=== PATIENT | male | born 1955 | race Caucasian/White ===

== ENCOUNTER 2020-12-05 11:44 | Outpatient (NON) | payer BC, SELFPAY ==
[2020-12-05 22:42] LABS: SARS-CoV-2 RNA PCR Positive
== END 2020-12-05 11:45 ==
PROVIDERS: PCP Family Medicine; Visit Provider Family Medicine
DX: U07.1 COVID-19 (principal)
CPT/HCPCS: C9803; U0003; U0005

== ENCOUNTER 2021-01-13 10:31 | Inpatient (IN) | payer BC, SELFPAY ==
[2021-01-13] VITALS (30 sets, daily range): BP systolic 90–116; BP diastolic 50–86; PULSE 40–72; RESP 11–20; TEMP 36.5–36.7; O2SAT 95–99; BMI 26.5
--- NOTE | 2021-01-13 | ECHO_ITS ---
Patient Info Name: Torrey Castañeda Age: 65 years : 1955 Gender: Male Ht: 70 in Wt: 168 lbs BSA: 1.95 m2 HR: 45 bpm BP: 116 / 86 mmHg Heart Rhythm: Sinus Rhythm, Bradycardia Technical Quality: Good Exam Date: 01/13/2021 4:53 PM Exam Location: [facility] Pulmonary Patient Status: Inpatient Admit Date: 01/13/2021 Staff Ordering Physician: Miguelangel Moulton MD Respiratory Therapy Assistant: Jan Coronado RDCS Attending Provider: Theresa El MD Referring Physician: Kenney HERNADEZ; Exam Type: CA echo dop color flow w con Study Info Indications R07.9 - Chest pain, unspecified Complete two-dimensional, color flow and Doppler transthoracic echocardiogram is performed with contrast to opacify the left ventricle and to improve the deliniation of the left ventricle endocardial borders. Contrast/Agitated Saline Contrast/Ag. Saline: Definity Amount: 3.00 ml Administered By: Galina Katz RN Existing IV Access: Yes History/Risk Factors Chest pain and bradycardia. Summary 1. Left ventricular systolic function is normal, estimated at 55%. 2. Moderate hypokinesis of the mid inferolateral and mid inferior delgado. 3. There is no aortic valve stenosis. 4. There is trace mitral valve regurgitation. 5. There is trace tricuspid valve regurgitation. 6. No pulmonary hypertension, estimated pulmonary arterial systolic pressure is 23 mmHg. Left Ventricle Left ventricular chamber dimension is normal. Left ventricular systolic function is normal, estimated at 55%. There is upper limits normal left ventricular wall thickness. The left ventricular diastolic function is grade II diastolic dysfunction. Moderate hypokinesis of the mid inferolateral and mid inferior delgado. Right Ventricle Right ventricular chamber dimension is normal. Right ventricular systolic function is normal. Left Atria Left atrial chamber dimension is mildly enlarged. Right Atria Right atrial chamber dimension is mildly enlarged. Aortic Valve The aortic valve is trileaflet. There is mild aortic valve sclerosis. There is no aortic valve stenosis. There is no aortic valve regurgitation. Pulmonic Valve The pulmonic valve is not well visualized. Mitral Valve The mitral valve has normal leaflets. There is trace mitral valve regurgitation. The mitral valve annulus is moderately calcified. Tricuspid Valve The tricuspid valve leaflets are normal. There is trace tricuspid valve regurgitation. No pulmonary hypertension, estimated pulmonary arterial systolic pressure is 23 mmHg. Pericardium/Pleural The pericardium appears normal. There is no pericardial effusion. Aorta The aortic root size at the sinus of Valsalva is normal. Left Ventricular Outflow Tract Name Value Normal LVOT 2D LVOT Diameter 2.07 cm LVOT Doppler LVOT Peak Gradient 7 mmHg LVOT Mean Gradient 3 mmHg LVOT VTI 29.04 cm LVOT VTI/AV VTI Ratio 0.89 LVOT Stroke Volume
--- NOTE | ~2021-01-13 | XR_ITS ---
EXAMINATION: XR chest 2V EXAM DATE: 01/13/2021 11:06 INDICATION: Right-sided generalized chest pain. TECHNIQUE: Frontal and lateral projections of the chest obtained and reviewed. Comparison is made to prior examination from 02/16/2013. FINDINGS: The lungs are clear. Azygos fissure. There are no pleural effusions. The cardiomediastinal silhouette is within normal limits. There is no pneumothorax suspected. The bones and soft tissues are unremarkable. IMPRESSION: No acute cardiopulmonary findings. Reviewed, dictated and finalized at location B. E BENDER
--- NOTE | 2021-01-13 10:39 | ECG_ITS ---
Measurements Intervals [place] Rate: 54 P: 47 [place]: 175 QRS: -43 QRSD: 106 T: 29 QT: 429 QTc: 410 Interpretive Statements SINUS BRADYCARDIA LEFT AXIS DEVIATION POOR R WAVE PROGRESSION, ANTERIOR LEADS BASELINE WANDER- V2-V5 BORDERLINE ECG Electronically Signed On 01-13-2021 10:56:56 FISH HATCHERY MANAGER by Manjeet Tracey D.O.
[2021-01-13 10:56] LABS: Basophils Percent Auto 0.5 % (0.2-1.2); Eosinophils Absolute Auto 0.1 K/mm3 (0-0.3); Eosinophils Percent Auto 1.6 % (0-4.4); Hematocrit 42.8 % (42.0-52.0); Hemoglobin 13.9 g/dL (14.0-18.0); Immature Granulocyte Absolute 0.04 K/mm3 (0.00-0.031); Immature Granulocyte Percent A 0.5 % (0-0.5); Lymphocytes Absolute Auto 1.75 K/mm3 (0.9-3.2); Lymphocytes Percent Auto 21.7 % (18.3-44.2); Mean Corpuscular HGB Conc 32.5 g/dl (32-36); Mean Corpuscular Hemoglobin 30.3 pg (26-34); Mean Corpuscular Volume 93.4 fl (80-100); Mean Platelet Volume 9.8 fl (7.4-10.4); Monocytes Absolute Auto 0.6 K/mm3 (0.1-0.6); Monocytes Percent Auto 7.3 % (2.6-8.5); Neutrophils Absolute Auto 5.5 K/mm3 (1.3-6.7); Neutrophils Percent Auto 68.4 % (45.5-73.1); Platelet Count Result 192 k/mm3 (150-375); Red Blood Count 4.58 M/mm3 (4.6-6.20); Red Cell Distribution Width 13.4 % (11.5-14.5); White Blood Count 8.1 K/mm3 (4.5-10.0)
[2021-01-13 11:11] LABS: Anion Gap 5 mmol/L (8-16); Blood Urea Nitrogen 21 mg/dL (9-20); Calcium 8.7 mg/dL (8.4-10.2); Carbon Dioxide 30 mmol/L (22-30); Chloride 106 mmol/L (98-107); Estimated Glomerular Filt Rate > 60; Glucose 131 mg/dL (75-110); Potassium 4.1 mmol/L (3.4-5.0); Sodium 141 mmol/L (137-145)
[2021-01-13 11:15] LABS: INR 0.9; Partial Thromboplastin Time 24.1 SECONDS (22.3-36.8)
[2021-01-13] MEDS: ONDANSETRON INJ 4 MG/2 ML VIAL IV PUSH (11:20)
[2021-01-13] MEDS: SODIUM CHLORIDE 0.9% IV 1,000 ML 999 ML IV CONT (11:20)
[2021-01-13 11:22] LABS: Troponin I 0.022 ng/mL (0.000-0.034)
[2021-01-13 11:36] LABS: Alanine Aminotransferase 58 U/L (4-50); Albumin Level 3.9 g/dL (3.5-5.1); Alkaline Phosphatase 80 U/L (38-126); Aspartate Amino Transferase 69 U/L (17-59); Bilirubin,Total 0.8 mg/dL (0.2-1.3); Lipase 78 U/L (23-300)
[2021-01-13] MEDS: SODIUM CHLORIDE 0.9% IV 500 ML 1000 ML (12:03)
--- NOTE | 2021-01-13 12:07 | ED.CHESTPAIN ---
HPI - Chest Pain General Chief Complaint: Chest Pain Stated Complaint: Right arm, CP Time Seen by Provider: 01/13/21 10:53 History of Present Illness HPI narrative: Patient is a 65-year-old male who presents ER with chest pain. Occurred about 9 AM. Reports it was a intense ache right-sided going to the shoulder and back that then moved across the center of his chest. Lasted for about an hour. Patient then started having vomiting and nausea. Had brief confusion at home prior to coming to the ER after having emesis. No lateralizing weakness or facial droop according to . Patient reports chest pain is now resolved. He does have some continued lightheadedness and nausea. No previous history of heart disease. Has not had similar symptoms. When he was dizzy had no rotational dizziness. No epigastric pain or lower abdominal pain. No association with eating or drinking. Related Data Home Medications Medication Instructions Recorded Confirmed levothyroxine 50 mcg PO DAILY 01/13/21 01/13/21 lisinopril 10 mg PO DAILY 01/13/21 01/13/21 simvastatin 5 mg PO DAILY 01/13/21 01/13/21 Allergies Allergy/AdvReac Type Severity Reaction Status Date / Time No Known Allergies Allergy Verified 09/18/20 11:47 Review of Systems Review of Systems: All systems reviewed & are unremarkable except as noted in HPI and below Constitutional: Constitutional: Denies chills and Denies fever(s) ENT: Denies nasal congestion and Denies sore throat Cardiovascular: Cardiovascular: Reports chest pain, Denies rapid heart rate and Reports radiating jaw, neck or arm pain Respiratory: Respiratory: Denies cough, Denies dyspnea and Denies wheezing Gastrointestinal: Gastrointestinal: Denies abdominal pain, Denies heartburn, Denies diarrhea, Reports nausea and Reports vomiting Musculoskeletal: Musculoskeletal: Denies back pain and Denies muscle cramps Neurologic: Reports dizziness, Reports syncope, Denies focal weakness and Denies numbness PMFSH Past Medical History Medical History Essential (primary) hypertension Hypothyroidism Pure hypercholesterolemia, unspecified Rotator cuff tear (~04/05/12) Ruptured patellar tendon (~2004) Surgical History Surgical History H/O hemorrhoidectomy (~04/27/13) H/O hernia repair (~1994) Family History Family History Mother Diabetes mellitus Sibling Diabetes mellitus Hypertension Family history of elevated blood lipids Family history of kidney disease Family history of malignant neoplasm of breast in first degree relative Family history of malignant neoplasm of kidney Father Hypertension Family history of throat cancer Social History Social History Smoking status: Never smoker Alcohol intake: never Substance use: never Gender identity (if verbalized by the patient): Male Spiritual care concerns: No Exam Narrative: Exam Narrative: GENERAL: Well-appearing, well-nourished, and in no acute distress. HEAD: Normocephalic, atraumatic. EYES: PERRL and EOMI. CHEST: Clear to auscultation. No respiratory distress. HEART: Bradycardic and regular. Normal peripheral pulses. ABDOMEN: Soft, nontender, nondistended. EXTREMITIES: Normal range of motion. No edema. SKIN: Warm, dry, no rash. NEURO: Alert and oriented x3. PSYCH: Normal mood and affect. Course Course Emergency Course: Consulted with cardiology. Dr. Mccarty requests medical admission and he will consult. Echocardiogram will be ordered. We will continue to trend troponins. No anticoagulation recommended at this time as patient is pain-free. Patient's blood pressures improving with IV fluid but not as much as only think after 2 L IV fluid. Patient's bradycardia seems to improve upon waking up as he is very comfor
--- NOTE | 2021-01-13 12:31 | PC.NURSE ---
ERP aware of Pt. blood pressure continuing to be in the upper 90s. ERP ordered additional 500ml bolus via verbal order readback. Blood pressures remained in the upper 90s after 1st initial 500ml bolus. ERP notified and ordered another 500ml bolus of NS via verbal order readback.
[2021-01-13] MEDS: SODIUM CHLORIDE 0.9% IV 500 ML 999 ML (12:32)
[2021-01-13 14:18] LABS: Troponin I 0.992 ng/mL (0.000-0.034)
--- NOTE | 2021-01-13 14:32 | ADMGEN ---
This patient, Torrey Castañeda, was admitted to IMU Room 203-01 @1432. Patient/family oriented to hospital policies and general routines including ID bracelet, bed and alarms, visiting hours, pain management, procedures, bathroom and other care routines, personal items, smoking policy, room service/diet, and visiting hours. Information on how to activate the Rapid Response Team has been discussed. Patient/Family are encouraged to report perceived risks to care and to ask questions if they do not understand what they are told or what they should do.
--- NOTE | 2021-01-13 14:55 | PM.CNCAR ---
Assessment and Plan Assessment and plan (1) NSTEMI (non-ST elevated myocardial infarction): Code(s): I21.4 - Non-ST elevation (NSTEMI) myocardial infarction Status: Acute Assessment and Plan: Although somewhat atypical right-sided chest pain given associated nausea, vomiting, near-syncope, bradycardia hypotension along with elevated troponin suggestive of acute coronary syndrome. No shortness of breath or hypoxia to support pulmonary embolism or recent inactivity. Patient is currently pain-free. NPO after midnight for coronary angiography to delineate coronary anatomy. Systemic anticoagulation, aspirin. Avoid beta-erik, nitrates given bradycardia and hypotension. Concern for possible RCA involvement given vagal response of bradycardia. Patient remains relatively hypotensive despite 2 L IV fluid in the emergency department. Patient feels well at this time has no complaints. If patient has refractory anginal symptoms and/or hemodynamic instability coronary angiography should be pursued on an urgent basis. discussed at length with the patient and his at bedside. All questions answered to their satisfaction. Risks including bleeding, stroke, , myocardial infarction with coronary angiography. Concern given bradycardia and hypotension which may post particular concerns with this case. Check lipid profile. Add statin, aspirin. Repeat 12 lead EKG, trend troponin. 2D echocardiogram. Will review when available with recommendations to follow. Discussed with patient and family my primary concern for underlying CAD and NSTEMI. We discussed medical therapy as well as invasive angiography as above. They agree to proceed with invasive workup in a.m. provided patient remains asymptomatic and hemodynamically stable. (2) Essential (primary) hypertension: Code(s): I10 - Essential (primary) hypertension Status: Acute Assessment and Plan: Hold lisinopril, patient now relatively hypotensive although otherwise stable. (3) Bradycardia: Code(s): R00.1 - Bradycardia, unspecified Status: Acute Assessment and Plan: Reviewed prior EKGs consistent with current study also documenting bradycardia. Avoid AV isabel blocking agents loss of R-waves throughout precordial leads otherwise no significant change. (4) Hypotension: Code(s): I95.9 - Hypotension, unspecified Status: Acute Assessment and Plan: As above. Exercise caution, monitor closely continue telemetry. 2D echocardiogram to assess LV function, wall motion abnormalities. check TSH. History of Present Illness History of Present Illness Consult date/time: Date of service: 01/13/21 14:55 Cardiology consultation at the request of Dr. El of the [facility] hospitalist service for my opinion regarding chest pain and elevated troponin. Requesting physician: Theresa El MD Consult reason: chest pain Reason For Visit: Chest pain/near syncope Narrative: patient is a pleasant 65-year-old male with a past medical history significant for hypertension, hypothyroidism, dyslipidemia who states he was in his usual state of health when approximately 830 this morning he was on a roof pulling nails when he rather suddenly began to experience right-sided heaviness /achiness which radiated to his right shoulder and upper back. He denies shortness of breath, diaphoresis or dizziness at that time. He states he got down off the roof notified his and states he was coming home. She told him she would come pick him up but he wished to drive himself home. is at bedside providing additional history in this regard. His states she gave him 4 baby aspirin and then he began to feel nauseous and vomited and was confused. She states he with started to slump over and while she was speaking with him he was not conversant. He did not completely lose consciousness yet the patient does not recall some of those events
--- NOTE | 2021-01-13 15:57 | PM.IMHP ---
H&P: HPI History of Present Illness Date/Time: 01/13/21 15:57 Chief Complaint: Chest pain Narrative: Torrey Castañeda is a 65 year old male felt R sided chest pain radiating to his shoulder and back was helping his son in law on a roof at that time. Pt went home and went to sleep he woke up and started throwing up. Presently pts Bp and heart rate are low in the hospital. Pt denies blacking out or any seizure activity. Pt had covid one month a ago otherwise is relatively well. Pt stated he had some left sided chest pain, and had a stress test then, in May which was negative. Pt has history of HTN, hypercholesterolemia and hypothyroidism. Review of Systems Review of Systems: All systems reviewed & are unremarkable except as noted in HPI and below PMFSH Past Medical History Medical History Essential (primary) hypertension Hypothyroidism Pure hypercholesterolemia, unspecified Rotator cuff tear (~04/05/12) Ruptured patellar tendon (~2004) Surgical History Surgical History H/O hemorrhoidectomy (~04/27/13) H/O hernia repair (~1994) Family History Family History Mother Diabetes mellitus Sibling Diabetes mellitus Hypertension Family history of elevated blood lipids Family history of kidney disease Family history of malignant neoplasm of breast in first degree relative Family history of malignant neoplasm of kidney Father Hypertension Family history of throat cancer Social History Social History Smoking status: Never smoker Alcohol intake: never Substance use: never Gender identity (if verbalized by the patient): Male Spiritual care concerns: No Meds Home Medications and Allergies Home Medications Medication Instructions Recorded Confirmed Type cyclobenzaprine 10 mg tablet 10 mg PO TID PRN #30 tablet 05/19/20 01/13/21 Rx levothyroxine 50 mcg PO DAILY 01/13/21 01/13/21 History lisinopril 10 mg PO DAILY 01/13/21 01/13/21 History simvastatin 5 mg PO DAILY 01/13/21 01/13/21 History Allergies Allergy/AdvReac Type Severity Reaction Status Date / Time No Known Allergies Allergy Verified 09/18/20 11:47 Vital Signs Vital Signs - 24 hr 01/13/21 10:53 01/13/21 10:54 01/13/21 11:06 Temperature 36.7 C Pulse Rate 55 L 57 L 57 L Respiratory Rate 19 14 11 L Blood Pressure 108/73 Pulse Oximetry 99 01/13/21 11:07 01/13/21 11:09 01/13/21 11:38 Temperature Pulse Rate 55 L 56 L 49 L Respiratory Rate 18 20 Blood Pressure 90/62 L Pulse Oximetry 98 01/13/21 11:46 01/13/21 12:01 01/13/21 12:02 Temperature Pulse Rate 46 L 44 L 43 L Respiratory Rate 16 11 L 15 Blood Pressure 93/61 L 90/64 L Pulse Oximetry 98 01/13/21 12:15 01/13/21 12:16 01/13/21 12:17 Temperature Pulse Rate 42 L 48 L 46 L Respiratory Rate 15 14 13 Blood Pressure 94/62 L Pulse Oximetry 98 98 01/13/21 12:26 01/13/21 12:30 01/13/21 12:32 Temperature Pulse Rate 49 L 49 L 47 L Respiratory Rate 12 20 15 Blood Pressure 98/61 L 90/60 L Pulse Oximetry 98 98 01/13/21 12:54 01/13/21 13:00 01/13/21 13:01 Temperature Pulse Rate 41 L 40 L 43 L Respiratory Rate 14 12 13 Blood Pressure 93/62 L Pulse Oximetry 99 99 99 01/13/21 13:14 01/13/21 13:15 01/13/21 13:16 Temperature Pulse Rate 49 L 42 L 45 L Respiratory Rate 17 16 15 Blood Pressure 95/67 L 99/61 L Pulse Oximetry 96 95 96 01/13/21 13:36 01/13/21 14:00 01/13/21 14:41 Temperature 36.5 C Pulse Rate 46 L 48 L 55 L Respiratory Rate 12 12 16 Blood Pressure 96/70 L 116/86 Pulse Oximetry 99 99 99 Exam Const: General: well developed Nutritional Appearance: well nourished HENMT: Head: normocephalic Eyes: General: appearance normal, both eyes and all related structures Pup
[2021-01-13 18:13] LABS: Cholesterol 121 mg/dL (0-200); HDL Direct 42 mg/dL; Triglycerides 32 mg/dL (<150)
[2021-01-13 18:24] LABS: LDL Cholesterol Direct 66 mg/dL
[2021-01-13] MEDS: ENOXAPARIN 100 MG/ML SYRINGE 84 MG SUB-Q (20:27)
--- NOTE | 2021-01-13 22:33 | PC.NURSE ---
Pt had a 5 beat run of vtach. Notified Dr. Varghese ordered mag level on him.
[2021-01-13 23:36] LABS: Magnesium 2.1 mg/dL (1.6-2.3)
--- NOTE | 2021-01-13 23:52 | ECG_ITS ---
Measurements Intervals [place] Rate: 55 P: 31 DE: 158 QRS: -44 QRSD: 105 T: 46 QT: 438 QTc: 421 Interpretive Statements SINUS BRADYCARDIA LEFT AXIS DEVIATION LOW QRS VOLTAGE IN PRECORDIAL LEADS INCOMPLETE RIGHT BUNDLE BRANCH BLOCK BORDERLINE ECG Electronically Signed On 01-14-2021 6:53:05 CLINICAL SAFETY SPECIALIST by Manjeet Tracey D.O.
[2021-01-14] VITALS (20 sets, daily range): BP systolic 88–116; BP diastolic 51–63; PULSE 43–67; RESP 15–18; TEMP 35.7–36.6; O2SAT 95–100
--- NOTE | 2021-01-14 05:18 | ECG_ITS ---
Measurements Intervals [place] Rate: 50 P: 60 [place]: 161 QRS: -39 QRSD: 104 T: 69 QT: 435 QTc: 398 Interpretive Statements SINUS BRADYCARDIA LEFT AXIS DEVIATION LOW QRS VOLTAGE IN PRECORDIAL LEADS INCOMPLETE RIGHT BUNDLE BRANCH BLOCK POOR R WAVE PROGRESSION, ANTERIOR LEADS BORDERLINE ECG Electronically Signed On 01-15-2021 7:06:08 CATHODE WASHER by Manjeet Tracey D.O.
[2021-01-14] MEDS: LEVOTHYROXINE SODIUM 50 MCG TABLET PO (05:29)
--- NOTE | 2021-01-14 05:43 | PC.NURSE ---
Pt started having cp of 3 it isn't radiating or having nausea. Called Dr. Varghese to notify. EKG done
--- NOTE | 2021-01-14 06:43 | ECG_ITS ---
Measurements Intervals [place] Rate: 65 P: 47 LA: 159 QRS: -39 QRSD: 109 T: 70 QT: 443 QTc: 462 Interpretive Statements SINUS RHYTHM VENTRICULAR COUPLET LEFT AXIS DEVIATION LOW QRS VOLTAGE IN PRECORDIAL LEADS INCOMPLETE RIGHT BUNDLE BRANCH BLOCK POOR R WAVE PROGRESSION, ANTERIOR LEADS BORDERLINE ECG Electronically Signed On 01-15-2021 7:06:56 DRAWING TENDER by Manjeet Tracey D.O.
[2021-01-14] MEDS: PROMETHAZINE HCL 25 MG/ML AMPUL 12.5 MG IV PUSH (07:06)
[2021-01-14] MEDS: MORPHINE SULFATE (*CRX) 4 MG/ML INJ IV PUSH (07:06)
[2021-01-14] MEDS: NITROGLYCERIN SL 0.4 MG TABLET SUBLINGUAL (07:30)
--- NOTE | 2021-01-14 08:05 | PC.NURSE ---
Pt called out that CP was worsening. He visibly looked uncomfortable stated pain was now a 5 and radiating down both arms to wrist, was sob, and feeling nauseous. Did vitals and repeat ekg. Call was placed to Dr. Varghese before he called back I gave morphine and phenergan. When he called back he ordered a repeat trop and a sublingual nitro to be given.
--- NOTE | 2021-01-14 08:24 | WPDMODSED ---
Moderate Sedation Note-Pt Data Patient Data Diagnosis: Acute coronary syndrome/ non ST elevation PA Present Complaint: intermittent chest pain Procedure to be performed/Plan: left heart catheterization Allergies Allergy/AdvReac Type Severity Reaction Status Date / Time No Known Allergies Allergy Verified 09/18/20 11:47 Home Medications Medication Instructions Recorded Confirmed Type cyclobenzaprine 10 mg tablet 10 mg PO TID PRN #30 tablet 05/19/20 01/13/21 Rx levothyroxine 50 mcg PO DAILY 01/13/21 01/13/21 History lisinopril 10 mg PO DAILY 01/13/21 01/13/21 History simvastatin 5 mg PO DAILY 01/13/21 01/13/21 History Current Medications: Active Medications Acetaminophen (Acetaminophen 325 Mg Tablet) 650 mg PO Q4H PRN PRN Reason: Mild Pain (1-3) or Fever Hydrocodone Bitart/Acetaminophen (Hydrocodone/Acetaminophen (*Crx) 5-325 Mg Tablet) 1 tab PO Q4H PRN PRN Reason: Pain Rated 4-6 Enoxaparin Sodium (Enoxaparin 100 Mg/Ml Syringe) 84 mg SUB-Q Q12HR [facility] Last Admin: 01/13/21 20:27 Dose: 84 mg Documented by: Levothyroxine Sodium (Levothyroxine Sodium 50 Mcg Tablet) 50 mcg PO DAILY@0630 [facility] Last Admin: 01/14/21 05:29 Dose: 50 mcg Documented by: Morphine Sulfate (Morphine Sulfate (*Crx) 4 Mg/Ml Inj) 4 mg IV PUSH Q2H PRN PRN Reason: Pain Rated 7-10 Last Admin: 01/14/21 07:06 Dose: 4 mg Documented by: Promethazine HCl (Promethazine Hcl 25 Mg/Ml Ampul) 12.5 mg IV PUSH Q6H PRN PRN Reason: Nausea Last Admin: 01/14/21 07:06 Dose: 12.5 mg Documented by: Simvastatin (Simvastatin 5 Mg Tablet) 5 mg PO DAILY [facility] Sedation/Anesthesia: No previous sedation/anesthesia problems (including family history). [facility] Past Medical History Medical History Essential (primary) hypertension Hypothyroidism Pure hypercholesterolemia, unspecified Rotator cuff tear (~04/05/12) Ruptured patellar tendon (~2004) Surgical History Surgical History H/O hemorrhoidectomy (~04/27/13) H/O hernia repair (~1994) Family History Family History Mother Diabetes mellitus Sibling Diabetes mellitus Hypertension Family history of elevated blood lipids Family history of kidney disease Family history of malignant neoplasm of breast in first degree relative Family history of malignant neoplasm of kidney Father Hypertension Family history of throat cancer Social History Social History Smoking status: Never smoker Alcohol intake: never Substance use: never Gender identity (if verbalized by the patient): Male Spiritual care concerns: No Mod Sed Physical Exam Physical Exam Pre Procedural Exam: Normal: Appearance ( well-developed well-nourished gentleman with intermittent chest pain), Neck, Throat, Airway, Lungs, Heart Size, Heart Rate, Heart Rhythm, Neuro Exam and Extremities Hours since solid foods: 12 Hours since liquid intake: 12 Internal Medicine - PN: Obj Da Vital Signs Vital Signs: Vital Signs - 24 hr 01/13/21 10:53 01/13/21 10:54 01/13/21 11:06 Temperature 36.7 C Pulse Rate 55 L 57 L 57 L Respiratory Rate 19 14 11 L Blood Pressure 108/73 Pulse Oximetry 99 01/13/21 11:07 01/13/21 11:09 01/13/21 11:38 Temperature Pulse Rate 55 L 56 L 49 L Respiratory Rate 18 20 Blood Pressure 90/62 L Pulse Oximetry 98 01/13/21 11:46 01/13/21 12:01 01/13/21 12:02 Temperature Pulse Rate 46 L 44 L 43 L Respiratory Rate 16 11 L 15 Blood Pressure 93/61 L 90/64 L Pulse Oximetry 98 01/13/21 12:15 01/13/21 12:16 01/13/21 12:17 Temperature Pulse Rate 42 L 48 L 46 L Respiratory Rate 15 14 13 Blood Pressure 94/62 L Pulse Oximetry 98 98 01/13/21 12:26 01/13/21 12:30 01/13/21 12:32 Temperature Pulse Rate 49 L 49 L 47 L Respiratory Rate 12 20 15 Bloo
--- NOTE | 2021-01-14 08:32 | PC.NURSE ---
Patient to cardiac ship laborer via stretcher. Report given to DEBRA Figueroa.
--- NOTE | 2021-01-14 09:15 | P.PCNCC_ITS ---
Cardiac Cath Procedure Note Date of procedure:: 01/14/21 Performing physician:: Darin Gomez MD Indication:: chest pain/ elevated troponin, diagnosis of acute coronary syndrome Brief clinical history:: 65-year-old patient without previous history of cardiac problems has hypertension and dyslipidemia being treated medically. Had an episode of chest pain yesterday while working on his roof. Following adm ission there was a moderate troponin rise prompting recommendation for angiography. Procedure Procedure performed:: Coronary angiography biplane left ventriculography Angio-Seal to right femoral artery Sedation/Medication given:: no sedation administered case start time 8:46 a.m. case end time 9:10 a.m. case monitored by Griselda Gordillo RN, trained observer Access site:: right femoral artery Estimated blood loss:: 10-15 cc Procedure note:: patient was brought to the cardiac catheterization lab in the postabsorptive state the right femoral triangle was prepared and draped in the usual fashion. Anesthesia was provided lidocaine infiltrated locally. Using modified Seldinger technique a 6 Kenyan sheath was placed into the femoral artery after this left heart catheterization was carried out. I used a 5 Kenyan FL4 catheter to engage inject the left coronary artery in multiple projections. I then used a 5 Ken[place] JR4 catheter to engage inject the right coronary artery. Following this the cineangiograms were reviewed. I used a 5 Kenyan angled pigtail catheter then to measure left-sided hemodynamics and to injected biplane left ventriculography. The case was then terminated in angiogram was done of the femoral artery through the sheath after which a Angio-Seal device was deployed with good anatomical and hemostatic result. Findings:: Hemodynamics: Central aortic pressure is 0 8/60 left ventricle 108/3 end-diastolic pressure is 18. There is no systolic gradient on pullback across the aortic valve. Left ventricle: The LV is normal in size all segments contract properly the global ejection fraction is 55-60% by visual estimation the left main coronary artery is widely patent the left anterior descending is a large caliber artery extending down to around the apex. on the 2nd angiogram which was the AP cranial injection there was a region of interesting contrast which was persisting in the vessel immediately after the major diagonal from the previous injection. On subsequent angiograms this had resolved and the vessel was otherwise angiographically normal. Circumflex is a large caliber vessel giving rise to the marginal branches and is angiographically not disease. Right coronary artery is a very large caliber vessel is dominant to the posterior circulation and angiographically is unremarkable. Conclusion:: 1. Right coronary dominant circulation with no angiographic evidence of coronary disease 2. interesting region of linear contrast persisting in the LAD on the 3rd angiogram as described above prior to the injection. This does raise some concern about the possibility of spontaneous coronary artery dissection. There was no visible dissection flap however in any of the angiograms. 3. Biplane left ventriculography demonstrating no regional wall motion abnormalities and normal left ventricular ejection fraction 4. Angio-Seal to right femoral artery Darin Gomez MD [facility]
[2021-01-14] MEDS: SODIUM CHLORIDE 0.9% IV 1,000 ML 125 ML IV CONT (09:30)
--- NOTE | 2021-01-14 10:45 | PC.NURSE ---
Patient returned to room following cardiac cath. Report received from DEBRA Elmore.
[2021-01-14] MEDS: SIMVASTATIN 5 MG TABLET PO (11:30)
[2021-01-14] MEDS: ASPIRIN 81 MG ENTERIC TABLET PO (11:30)
--- NOTE | 2021-01-14 15:46 | PM.IMPN ---
Progress Note: A&P Assessment and Plan (1) Chest pain: Code(s): R07.9 - Chest pain, unspecified Status: Resolved Assessment and Plan: Sp heart cath coronaries are clear, possible dissection (2) Syncope: Code(s): R55 - Syncope and collapse Status: Resolved (3) Pure hypercholesterolemia, unspecified: Code(s): E78.00 - Pure hypercholesterolemia, unspecified Status: Acute Assessment and Plan: Pt is on a statin ok to continue (4) Essential (primary) hypertension: Code(s): I10 - Essential (primary) hypertension Status: Acute Assessment and Plan: Hold BP medications - low Bp after NSTEMI Started on fluids for hypotension (5) NSTEMI (non-ST elevated myocardial infarction): Code(s): I21.4 - Non-ST elevation (NSTEMI) myocardial infarction Status: Acute Assessment and Plan: Pt having right sided chest pain with elevated troponin Aspirin, morphine. Continue statin add full dose lovenox. Sp heart catheterization today (6) Hypothyroidism: Code(s): E03.9 - Hypothyroidism, unspecified Status: Acute Assessment and Plan: Continue patients levothyroxine Subjective Date/time seen: 01/14/21 15:46 Review of Systems Review of Systems: All systems reviewed & are unremarkable except as noted in HPI and below Exam Const: General: well developed Nutritional Appearance: well nourished HENMT: Head: normocephalic Eyes: General: appearance normal, both eyes and all related structures Pupils: Equal, round and reactive pupils present Neck: Neck: supple Chest: Chest palpation & inspection: normal inspection of the chest Resp: Effort & Inspection: normal respiratory effort Auscultation: clear to auscultation bilaterally Cardio: Jugular venous distension: no JVD Rhythm: regular rhythm Heart sounds: S1 normal heart sound present and S2 normal heart sound present GI: Inspection: normal to inspection Skin: General skin exam: normal color and dry skin Neuro: Cranial nerves: Yes CN's II-XII intact bilaterally and Yes Equal, round and reactive pupils present Cognition (Neuro): normal cognition Speech: normal speech Motor exam (neuro): 5/5 motor strength present throughout Extrem: General: normal to inspection Psych: Mental Status: mental status grossly normal Objective Data Vital Signs Vital Signs: Vital Signs - 24 hr 01/13/21 16:00 01/13/21 18:00 01/13/21 20:00 Temperature 36.7 C Pulse Rate 51 L 72 67 Pulse Rate [Bilateral Radial Palpation] Respiratory Rate 20 Blood Pressure 98/53 L Pulse Oximetry 98 01/13/21 22:00 01/13/21 22:20 01/13/21 23:48 Temperature 36.7 C Pulse Rate 54 L 47 L Pulse Rate [Bilateral Radial Palpation] Respiratory Rate 16 Blood Pressure 93/50 L Pulse Oximetry 99 99 01/14/21 02:00 01/14/21 04:00 01/14/21 06:00 Temperature 36.6 C Pulse Rate 47 L 50 L 46 L Pulse Rate [Bilateral Radial Palpation] Respiratory Rate 18 Blood Pressure 97/52 L Pulse Oximetry 97 01/14/21 08:00 01/14/21 09:30 01/14/21 09:45 Temperature Pulse Rate 45 L 44 L 44 L Pulse Rate [Bilateral Radial Palpation] 44 L 44 L Respiratory Rate 15 15 Blood Pressure 95/61 L 88/63 L Pulse Oximetry 97 98 01/14/21 10:00 01/14/21 10:15 01/14/21 10:31 Temperature Pulse Rate 44 L 44 L 44 L Pulse Rate [Bilateral Radial Palpation] 44 L 45 L 46 L Respiratory Rate 15 16 15 Blood Pressure 88/62 L 90/62 L 95/61 L Pulse Oximetry 95 96 97 01/14/21 11:26 01/14/21 12:00 01/14/21 13:00 Temperature 36.2 C L 35.7 C L 36.1 C L Pulse Rate 54 L 43 L 60 Pulse Rate [Bilateral Radial Palpation] Respiratory Rate 16 18 16 Blood Pressure 98/60 L 97/51 L Pulse Oximetry 100 98 96 01/14/21 14:00 Temperature 36.1 C L Pulse Rate 60 Pulse Rate [Bilateral Radial Palpation] Respiratory Rate 16 Blood Pressure 98/60 L Pulse Oximetry 100 Intake/Output Intake/Output:
[2021-01-14] MEDS: ENOXAPARIN 100 MG/ML SYRINGE 84 MG SUB-Q (20:18)
[2021-01-15] VITALS (8 sets, daily range): BP systolic 111–117; BP diastolic 64–73; PULSE 49–73; RESP 16–20; TEMP 36.1–36.2; O2SAT 97–98
[2021-01-15] MEDS: LEVOTHYROXINE SODIUM 50 MCG TABLET PO (06:38)
[2021-01-15] MEDS: amLODIPine BESYLATE 5 MG TABLET PO (09:44)
[2021-01-15] MEDS: SIMVASTATIN 5 MG TABLET PO (09:44)
[2021-01-15] MEDS: ASPIRIN 81 MG ENTERIC TABLET PO (09:44)
[2021-01-15] MEDS: CLOPIDOGREL BISULFATE 75 MG TABLET PO (11:37)
--- NOTE | 2021-01-15 11:37 | PM.PNCARD ---
Progress Note: A&P Assessment and Plan (1) NSTEMI (non-ST elevated myocardial infarction): Code(s): I21.4 - Non-ST elevation (NSTEMI) myocardial infarction Status: Acute Assessment and Plan: Minimal nonobstructive CAD on left heart catheterization. Transient contrast hang up in the mid LAD just before bifurcation of a diagonal branch that resolved. Initial concern for possible spontaneous coronary artery dissection, however, no evidence otherwise identified. Sluggish flow throughout coronary vasculature SETH II at best. Possible coronary spasm more likely endothelial dysfunction/microvascular disease. Asymptomatic presently. Patient tolerating amlodipine, however, given bradycardia and hypotension throughout this hospitalization for beta-blockers will be held for the time being until additional safety can be determined as an outpatient. If BP recovers and is elevated resume lisinopril. Explained I would prefer patient on an HÉCTOR-inhibitor and metoprolol but amlodipine may assist with relaxation vascular smooth muscle, reduction in symptoms and potential benefit in microvascular dysfunction given sluggish flow. Patient and verbalized understanding. All questions answered to their satisfaction. No strenuous and sexual activity for the next 2 weeks. Will prefer to remain off work for 2 weeks as counseled. Continue statin therapy. Goal LDL less than 70. Recommend aspirin 81 mg daily indefinitely. Will add clopidogrel 75 mg daily for least the next 3 months will discuss the office based on patient's symptoms. Stable for discharge home to follow with me as an outpatient within 4 weeks. (2) Essential (primary) hypertension: Code(s): I10 - Essential (primary) hypertension Status: Acute Assessment and Plan: Hold lisinopril, patient now relatively hypotensive although otherwise stable. Tolerating amlodipine. Will consider resuming based on blood pressure as an outpatient. (3) Bradycardia: Code(s): R00.1 - Bradycardia, unspecified Status: Acute Assessment and Plan: Reviewed prior EKGs consistent with current study also documenting bradycardia. Avoid AV isabel blocking agents loss of R-waves throughout precordial leads otherwise no significant change. As tolerated may consider beta-erik therapy as an outpatient. (4) Hypotension: Code(s): I95.9 - Hypotension, unspecified Status: Acute Assessment and Plan: Much better this morning, tolerating amlodipine thus far. Will need to monitor closely, ambulate with caution. Subjective Date/time seen: Date of Service: 01/15/21 11:37 Follow-up for chest pain, elevated troponin, hypotension, bradycardia. Albaro CP, dizziness, SOB. no leg pain. HR better but carson overnight. BP low yesterday better this AM. No palps. LHC yesterday with mild nonobstructive CAD. Patient states he is ready to go home. Review of Systems Review of Systems: All systems reviewed & are unremarkable except as noted in HPI and below Constitutional: Constitutional: Reports as per HPI and Reports no additional constitutional complaints Eyes: Eyes: Reports as per HPI and Reports no additional eye complaints ENT: Reports system reviewed and no additional complaints, except as documented and Reports as per HPI Cardiovascular: Cardiovascular: Reports as per HPI, Reports no additional cardiovascular complaints and Denies chest pain Respiratory: Respiratory: Reports as per HPI and Reports no additional respiratory complaints Gastrointestinal: Gastrointestinal: Reports as per HPI, Reports no additional gastrointestinal complaints, Denies nausea and Denies vomiting Genitourinary: Genitourinary: Reports no additional male genitourinary complaints and Reports as per HPI Musculoskeletal: Musculoskeletal: Reports no additional musculoskeletal complaints and Reports as per HPI Integumentary/Breasts: Skin/Breast: Reports system reviewed and no theron
--- NOTE | 2021-01-15 12:50 | PM.DS ---
DS: Admitting Diagnosis Admitting Diagnosis Admitting Diagnosis: Chest pain DS: Discharge Diagnosis Discharge Diagnosis (1) Chest pain: Code(s): R07.9 - Chest pain, unspecified Status: Resolved Assessment and Plan: Sp heart cath coronaries are clear, little evidence of dissection, pt is ok for discharge, Bp has improved. medications adjusted. Heart cath results: 1. Right coronary dominant circulation with no angiographic evidence of coronary disease 2. interesting region of linear contrast persisting in the LAD on the 3rd angiogram as described above prior to the injection. This does raise some concern about the possibility of spontaneous coronary artery dissection. There was no visible dissection flap however in any of the angiograms. 3. Biplane left ventriculography demonstrating no regional wall motion abnormalities and normal left ventricular ejection fraction 4. Angio-Seal to right femoral artery (2) Syncope: Code(s): R55 - Syncope and collapse Status: Resolved (3) Pure hypercholesterolemia, unspecified: Code(s): E78.00 - Pure hypercholesterolemia, unspecified Status: Acute Assessment and Plan: Pt is on a statin ok to continue (4) Essential (primary) hypertension: Code(s): I10 - Essential (primary) hypertension Status: Acute Assessment and Plan: Hold BP medications - low Bp after NSTEMI Started on fluids for hypotension, bp improved. (5) NSTEMI (non-ST elevated myocardial infarction): Code(s): I21.4 - Non-ST elevation (NSTEMI) myocardial infarction Status: Ruled-out Assessment and Plan: Added statin, aspirin. Sp heart catheterization today See results (6) Hypothyroidism: Code(s): E03.9 - Hypothyroidism, unspecified Status: Acute Assessment and Plan: Continue patients levothyroxine DS: Summary Hospital Course Hospital Course: Maddy is a 65 year old male felt R sided chest pain radiating to his shoulder and back was helping his son in law on a roof at that time. Pt went home and went to sleep he woke up and started throwing up. Presently pts Bp and heart rate are low in the hospital. Pt denies blacking out or any seizure activity. Pt had covid one month a ago otherwise is relatively well. Pt stated he had some left sided chest pain, and had a stress test then, in May which was negative. Pt has history of HTN, hypercholesterolemia and hypothyroidism.Pt had urgent heart cath for NSTEMI and low Bp. Pt had clear coronaries was started on ASA and statin. Pt to follow with cardiology. Bp improved on discharge, pt was medications were adjusted. Time Spent with Patient Time attestation: Total time spent providing and/or coordinating discharge services:40 minutes on day of discharge Exam Const: General: well developed Nutritional Appearance: well nourished HENMT: Head: normocephalic Chest: Chest palpation & inspection: normal inspection of the chest Resp: Effort & Inspection: normal respiratory effort Auscultation: clear to auscultation bilaterally Cardio: Jugular venous distension: no JVD Rhythm: regular rhythm Heart sounds: S1 normal heart sound present and S2 normal heart sound present GI: Inspection: normal to inspection Auscultation: normal bowel sounds Skin: General skin exam: normal color and dry skin Neuro: Cranial nerves: Yes CN's II-XII intact bilaterally and Yes Equal, round and reactive pupils present Cognition (Neuro): normal cognition Speech: normal speech Motor exam (neuro): 5/5 motor strength present throughout Extrem: General: normal to inspection Psych: Appearance: grossly normal Mental Status: mental status grossly normal Discharge Plan Discharge Attending physician on discharge: Theresa El Consulting providers: Rajiv Mccarty Discharging Clinician: Theresa El Anticipated Discharge Date/Time: 01/15/21 12:49 Patient Disposition:
== END 2021-01-15 13:18 | disposition home or self-care (01) | DRG 287 ==
LOC: ANHED 10:58 → ANHIMU 13:51
PROVIDERS: Emergency Medicine; Internal Medicine Cardiovascular Disease; Specialist; Admitting Provider Family Medicine; Emergency Provider Emergency Medicine; PCP Family Medicine; Visit Provider Family Medicine
PROC: 4A023N7 Measurement of Cardiac Sampling and Pressure, Left Heart, Percutaneous Approach (ICD-10-PCS; CPT 93452; principal; 2021-01-14 08:30)
PROC: 4A023N7 Measurement of Cardiac Sampling and Pressure, Left Heart, Percutaneous Approach (ICD-10-PCS; 2021-01-14 08:30)
DX: R07.9 Chest pain, unspecified (principal); R55 Syncope and collapse; R00.1 Bradycardia, unspecified; Z86.16 Personal history of COVID-19; I10 Essential (primary) hypertension; I95.9 Hypotension, unspecified; E03.9 Hypothyroidism, unspecified; E78.00 Pure hypercholesterolemia, unspecified
CPT/HCPCS: 36415; 71046; 80048; 80061; 80076; 83690; 83735; 84484; 85025; 85610; 85730; 93005; 93458; 96361; 96372; 96374; 96375; 99285; A9270; C1760; C1887; C1894; C8929; G0269; G0378; J1644; J1650; J2250; J2270; J2405; J2550; J3010; J7030; J7040; Q9957

== ENCOUNTER 2021-06-03 01:45 | Day surgery (SDC) | payer MEDICARE, SELFPAY ==
[2021-05-18 14:50] VITALS: BMI 26.5
--- NOTE | 2021-06-02 13:52 | WPDANESEPPF ---
Anes - Initial Pre Proc Eval Procedure: Operation Date: 06/03/21 07:30 Proposed Procedures p Screening Colonoscopy - Yvon Hernandez MD Date/Time: 06/02/21 13:52 Surgeon: Yvon Hernandez MD Pre Op Diagnosis: neoplasm screening Patient Data Age: 66 Gender: M Height: 1.78 m Weight: 84 kg Allergies Allergy/AdvReac Type Severity Reaction Status Date / Time No Known Allergies Allergy Verified 05/28/21 11:19 Home Medications Medication Instructions Recorded Confirmed Type aspirin 81 mg PO QAM #30 tablet 01/15/21 05/28/21 Rx Eye Vitamin and Minerals 1 tab-cap PO DAILY 05/18/21 05/28/21 History omega-3 fatty acids [Fish Oil] 500 mg PO DAILY 05/18/21 05/28/21 History amlodipine 5 mg tablet 5 mg PO QAM #90 tablet 05/28/21 05/28/21 Rx clopidogrel 75 mg tablet 75 mg PO QAM #90 tablet 05/28/21 05/28/21 Rx levothyroxine 50 mcg tablet 50 mcg PO DAILY #90 tablet 05/28/21 05/28/21 Rx simvastatin 5 mg tablet 5 mg PO DAILY #90 tablet 05/28/21 05/28/21 Rx Patient hx anesthesia problems: none Family hx anesthesia problems: none PMFSH Past Medical History Medical History (Updated 06/02/21 @ 13:53 by Cipriano Fernando MD) ACS (acute coronary syndrome) CAD (coronary artery disease) Essential (primary) hypertension Hypothyroidism NSTEMI (non-ST elevated myocardial infarction) Pure hypercholesterolemia, unspecified Rotator cuff tear (~04/05/12) Ruptured patellar tendon (~2004) Surgical History Surgical History H/O hemorrhoidectomy (~04/27/13) H/O hernia repair (~1994) Family History Family History Mother Diabetes mellitus Sibling Diabetes mellitus Hypertension Family history of elevated blood lipids Family history of kidney disease Family history of malignant neoplasm of breast in first degree relative Family history of malignant neoplasm of kidney Father Hypertension Family history of throat cancer Social History Social History Alcohol intake: never Substance use: never Substance use type: does not use Living arrangements: with family Gender identity (if verbalized by the patient): Male Spiritual care concerns: No Anes - Eval Final PreProcedure Day of Procedure 06/02/21 13:52 Patient weight: overweight Heart: regular rate and rhythm Lungs: clear to auscultation and normal air movement Airway: Mallampati scale class II Neurological: alert and oriented Last oral intake: >/= 8 hours ASA classification: III Emergent: no Anesthetic plan: proceed Anesthesia type and monitoring: general GIVS Informed Consent: The patient's anesthetic plan and its attendant risks and benefits were discussed with the patient/family/POA. Questions were solicited and answers provided to the satisfaction of the patient/family/POA.
[2021-06-03 06:11] VITALS: BP 120/85; PULSE 58; RESP 20; TEMP 36.1; O2SAT 98; BMI 25.1
[2021-06-03] MEDS: LACTATED RINGERS 1,000 ML 150 ML IV CONT (06:27)
--- NOTE | 2021-06-03 07:15 | WPDGICN ---
Assessment and Plan Assessment and plan (1) Encounter for screening colonoscopy: Code(s): Z12.11 - Encounter for screening for malignant neoplasm of colon Status: Acute Assessment and Plan: Screening colonoscopy advised because of patient's age. Has been more than 10 years since last exam. Further recommendations will be given after endoscopy. GI Consult Note Consult date/time: 06/03/21 07:15 HPI: Torrey Castañeda is a 66 year old male Presents for screening colonoscopy. Patient states that his current weight appetite bowel movements are normal. Patient denies abdominal pain. He has had no bleeding. His last colonoscopy was 2007. At that time he was identified as having hemorrhoids. Patient's notes that with laxatives patient has developed a bump in his anus. Consistent with hemorrhoid. His family history is noncontributory. Review of Systems Review of Systems: All systems reviewed & are unremarkable except as noted in HPI and below PMFSH Past Medical History Medical History (Updated 06/03/21 @ 07:17 by Yvon Hernandez MD) ACS (acute coronary syndrome) CAD (coronary artery disease) Essential (primary) hypertension Hypothyroidism NSTEMI (non-ST elevated myocardial infarction) Pure hypercholesterolemia, unspecified Rotator cuff tear (~04/05/12) Ruptured patellar tendon (~2004) Surgical History Surgical History H/O hemorrhoidectomy (~04/27/13) H/O hernia repair (~1994) Family History Family History Mother Diabetes mellitus Sibling Diabetes mellitus Hypertension Family history of elevated blood lipids Family history of kidney disease Family history of malignant neoplasm of breast in first degree relative Family history of malignant neoplasm of kidney Father Hypertension Family history of throat cancer Social History Social History Alcohol intake: never Substance use: never Substance use type: does not use Living arrangements: with family Gender identity (if verbalized by the patient): Male Spiritual care concerns: No Meds Home Medications and Allergies Home Medications Medication Instructions Recorded Confirmed Type aspirin 81 mg PO QAM #30 tablet 01/15/21 05/28/21 Rx Eye Vitamin and Minerals 1 tab-cap PO DAILY 05/18/21 05/28/21 History omega-3 fatty acids [Fish Oil] 500 mg PO DAILY 05/18/21 05/28/21 History amlodipine 5 mg tablet 5 mg PO QAM #90 tablet 05/28/21 05/28/21 Rx clopidogrel 75 mg tablet 75 mg PO QAM #90 tablet 05/28/21 05/28/21 Rx levothyroxine 50 mcg tablet 50 mcg PO DAILY #90 tablet 05/28/21 05/28/21 Rx simvastatin 5 mg tablet 5 mg PO DAILY #90 tablet 05/28/21 05/28/21 Rx Allergies Allergy/AdvReac Type Severity Reaction Status Date / Time No Known Allergies Allergy Verified 05/28/21 11:19 Vital Signs Vital Signs - 24 hr 06/03/21 06:11 Temperature 97.0 F L Pulse Rate 58 L Respiratory Rate 20 Blood Pressure 120/85 Pulse Oximetry 98 Exam Narrative: Exam Narrative: Physical exam reveals patient to be alert. Vital signs stable. HEENT exam is unremarkable. Patient is anicteric. Lungs are clear to auscultation and percussion. Heart is without murmur or extra sounds. Abdominal exam bowel sounds are present soft nontender with no organomegaly. Digital external rectal exam is normal.
[2021-06-03] MEDS: SIMETHICONE ORAL SUSPENSION 20 MG/0.3 ML 30 ML BOTTLE 0.6 ML IRRIGATION (07:39)
[2021-06-03 07:48] VITALS: BP 93/56; PULSE 58; RESP 15; O2SAT 95
[2021-06-03 07:58] VITALS: BP 97/70; PULSE 70; RESP 15; O2SAT 96
[2021-06-03 08:08] VITALS: BP 102/72; PULSE 53; RESP 16; O2SAT 98
== END 2021-06-03 08:18 | disposition home or self-care (01) ==
PROVIDERS: PCP Family Medicine; Visit Provider Internal Medicine Gastroenterology
PROC: 0DJD8ZZ Inspection of Lower Intestinal Tract, Via Natural or Artificial Opening Endoscopic (ICD-10-PCS; CPT 45378; principal; 2021-06-03 07:30)
DX: Z12.11 Encounter for screening for malignant neoplasm of colon (principal); K64.8 Other hemorrhoids; K57.30 Diverticulosis of large intestine without perforation or abscess without bleeding; I25.10 Atherosclerotic heart disease of native coronary artery without angina pectoris; I10 Essential (primary) hypertension; I25.2 Old myocardial infarction; E03.9 Hypothyroidism, unspecified; E78.00 Pure hypercholesterolemia, unspecified; Z79.02 Long term (current) use of antithrombotics/antiplatelets; Z79.82 Long term (current) use of aspirin
CPT/HCPCS: G0121; J2704; J7120

== ENCOUNTER 2021-07-02 11:07 | Emergency (ER) | payer MEDICARE, SELFPAY ==
[2021-07-02] VITALS (11 sets, daily range): BP systolic 123–134; BP diastolic 84–95; PULSE 58–146; RESP 11–20; TEMP 36.5; O2SAT 94–99
--- NOTE | ~2021-07-02 | XR_ITS ---
EXAMINATION: XR chest 1V portable DATE: 07/02/2021 12:04 INDICATION: Chest pain. TECHNIQUE: A single frontal view of the chest was obtained. COMPARISON: Chest 2 views 01/13/2021 FINDINGS: A calcified right lung nodule is consistent with old granulomatous disease. No pleural effu danielle or pneumothorax. The heart size is normal. IMPRESSION: 1. No acute cardiopulmonary disease. Reviewed, dictated and finalized at location A.
--- NOTE | 2021-07-02 11:09 | ECG_ITS ---
Measurements Intervals [place] Rate: 149 P: NM: 0 QRS: -79 QRSD: 109 T: -1 QT: 286 QTc: 451 Interpretive Statements ATRIAL FLUTTER/TACHYCARDIA WITH RAPID VENTRICULAR RESPONSE INCOMPLETE RIGHT BUNDLE BRANCH BLOCK LEFT ANTERIOR FASCICULAR BLOCK ABNORMAL ECG Electronically Signed On 07-02-2021 11:31:10 CDT by Manjeet Tracey D.O.
[2021-07-02] MEDS: ASPIRIN 81 MG CHEWABLE TABLET 324 MG PO (11:52)
[2021-07-02 11:58] LABS: Basophils Percent Auto 0.9 % (0.2-1.2); Eosinophils Absolute Auto 0.2 K/mm3 (0-0.3); Eosinophils Percent Auto 3.6 % (0-4.4); Hematocrit 45.7 % (42.0-52.0); Immature Granulocyte Absolute 0.02 K/mm3 (0.00-0.031); Immature Granulocyte Percent A 0.4 % (0-0.5); Lymphocytes Absolute Auto 1.79 K/mm3 (0.9-3.2); Lymphocytes Percent Auto 38.4 % (18.3-44.2); Mean Corpuscular HGB Conc 32.8 g/dl (32-36); Mean Corpuscular Hemoglobin 29.4 pg (26-34); Mean Corpuscular Volume 89.6 fl (80-100); Mean Platelet Volume 10.7 fl (7.4-10.4); Monocytes Absolute Auto 0.6 K/mm3 (0.1-0.6); Monocytes Percent Auto 12.7 % (2.6-8.5); Neutrophils Absolute Auto 2.1 K/mm3 (1.3-6.7); Platelet Count Result 187 k/mm3 (150-375); Red Cell Distribution Width 13.6 % (11.5-14.5); White Blood Count 4.7 K/mm3 (4.5-10.0)
[2021-07-02 12:01] LABS: Anion Gap 11 mmol/L (8-16); Blood Urea Nitrogen 19 mg/dL (9-20); Calcium 9.8 mg/dL (8.4-10.2); Carbon Dioxide 27 mmol/L (22-30); Chloride 104 mmol/L (98-107); Estimated CRCL calculation 61 ml/min; Estimated Glomerular Filt Rate > 60; Glucose 111 mg/dL (65-110); Potassium 3.6 mmol/L (3.4-5.0); Sodium 142 mmol/L (137-145)
[2021-07-02] MEDS: SODIUM CHLORIDE 0.9% IV 1,000 ML 999 ML IV CONT (12:01)
--- NOTE | 2021-07-02 12:07 | ECG_ITS ---
Measurements Intervals [place] Rate: 79 P: 26 CO: 160 QRS: -62 QRSD: 123 T: 31 QT: 388 QTc: 446 Interpretive Statements SINUS RHYTHM LEFT ANTERIOR FASCICULAR BLOCK LOW VOLTAGE- PRECORDIAL LEADS BASELINE ARTIFACT- II, III, AVF, V3-V6 ABNORMAL ECG Electronically Signed On 07-02-2021 12:53:19 CDT by Manjeet Tracey D.O.
[2021-07-02 12:08] LABS: INR 0.9; Prothrombin Time 12.4 Seconds (11.1-14.7)
[2021-07-02 12:09] LABS: Partial Thromboplastin Time 24.2 SECONDS (22.3-36.8)
[2021-07-02 12:13] LABS: Troponin I < 0.012 ng/mL (0.000-0.034)
[2021-07-02 12:23] LABS: Alanine Aminotransferase 30 U/L (4-50); Albumin Level 4.7 g/dL (3.5-5.1); Alkaline Phosphatase 102 U/L (38-126); Aspartate Amino Transferase 29 U/L (17-59)
--- NOTE | 2021-07-02 12:50 | ED.CHESTPAIN ---
HPI - Chest Pain General Chief Complaint: Chest Pain Stated Complaint: chest pain Time Seen by Provider: 07/02/21 11:37 History of Present Illness HPI narrative: Pt presents with chest pain for the past 1 hour. PT reports he was working outside when he developed a sudden onset pain. Pain was cramping, constant, no clear aggravating or alleviating factors. He reports prior cardiac event in February requiring stents but today symptoms feel different. he reports shortness of breath, denies nausea, vomiting, dirrhea Related Data Home Medications Medication Instructions Recorded Confirmed Eye Vitamin and Minerals 1 tab-cap PO DAILY 05/18/21 05/28/21 omega-3 fatty acids [Fish Oil] 500 mg PO DAILY 05/18/21 05/28/21 Allergies Allergy/AdvReac Type Severity Reaction Status Date / Time No Known Allergies Allergy Verified 07/02/21 11:49 Review of Systems Review of Systems: CONSTITUTIONAL: Denies fever, chills, or sweats. EYES: Denies visual changes, redness, or discharge. ENT: Denies rhinorrhea, congestion, sore throat, or otalgia. CARDIOVASCULAR: Denies palpitations, or edema. RESPIRATORY: Denies cough or dyspnea. GASTROINTESTINAL: Denies abdominal pain, nausea, vomiting, or diarrhea. GENITOURINARY: Denies dysuria or hematuria. SKIN: Denies rash or itching. MUSCULOSKELETAL: Denies back pain, joint pain, or myalgia. NEUROLOGIC: Denies headache, numbness, dizziness, or weakness. PSYCHIATRIC: Denies anxiety or depression. All systems reviewed & are unremarkable except as noted in HPI and below PMFSH Past Medical History Medical History ACS (acute coronary syndrome) CAD (coronary artery disease) Essential (primary) hypertension Hypothyroidism NSTEMI (non-ST elevated myocardial infarction) Pure hypercholesterolemia, unspecified Rotator cuff tear (~04/05/12) Ruptured patellar tendon (~2004) Surgical History Surgical History H/O hemorrhoidectomy (~04/27/13) H/O hernia repair (~1994) Family History Family History Mother Diabetes mellitus Sibling Diabetes mellitus Hypertension Family history of elevated blood lipids Family history of kidney disease Family history of malignant neoplasm of breast in first degree relative Family history of malignant neoplasm of kidney Father Hypertension Family history of throat cancer Social History Social History Alcohol intake: never Substance use: never Substance use type: does not use Gender identity (if verbalized by the patient): Male Spiritual care concerns: No Exam Const: General: no acute distress Orientation/consciousness: patient oriented x3 HENMT: Head: normal to inspection Ears: external ears normal Eyes: Conjunctivae: conjunctivae normal Pupils: Equal, round and reactive pupils present Neck: Neck: normal visual inspection and no lymphadenopathy Chest: Chest palpation & inspection: normal inspection of the chest Resp: Effort & Inspection: normal respiratory effort Auscultation: clear to auscultation bilaterally Cardio: Other: Irregular symmetric pulses in the bilateral upper extremities tachycardic GI: Inspection: non-distended GI Palp: Yes Soft to palpation, No Tenderness to palpation present (GI) and No Guarding due to palpation present (GI) : Testes: Testes normal Skin: General skin exam: normal color Rashes: no rashes Neuro: General: patient oriented x3 and moves all extremities Extrem: General: normal to inspection and no edema Psych: Appearance: grossly normal Mental Status: mental status grossly normal Affect: normal affect Attitude: cooperative Course Reevaluation(s) Reevaluation #1: pt reports feeling improved and his symptoms have resloved Date: 07/02/21 Time: 12:56 Vital Signs Vital signs: Vital Sign
== END 2021-07-02 13:30 | disposition home or self-care (01) ==
PROVIDERS: Emergency Medicine; Emergency Provider Emergency Medicine; PCP Family Medicine
DX: I48.0 Paroxysmal atrial fibrillation (principal); I25.10 Atherosclerotic heart disease of native coronary artery without angina pectoris; I10 Essential (primary) hypertension; E03.9 Hypothyroidism, unspecified; I25.2 Old myocardial infarction; E78.00 Pure hypercholesterolemia, unspecified
CPT/HCPCS: 36415; 71045; 80048; 80076; 84443; 84484; 85025; 85610; 85730; 93005; 96360; 99284; A9270; J7030

== ENCOUNTER 2021-10-06 17:19 | Emergency (ER) | payer MEDICARE, SELFPAY ==
[2021-10-06] VITALS (10 sets, daily range): BP systolic 123–140; BP diastolic 79–83; PULSE 47–72; RESP 11–25; TEMP 36.4–36.6; O2SAT 97–100
--- NOTE | ~2021-10-06 | XR_ITS ---
EXAMINATION: XR chest 2V DATE: 10/06/2021 18:47 INDICATION: Hypertension and coronary artery disease presenting with palpitations. TECHNIQUE: PA and lateral views of the chest were obtained. COMPARISON: Chest radiograph dated 07/02/2021 FINDINGS: Normal variant azygos lobe and fissure at the right upper lung zone. Calcified nodule at the right lo wer lung zone consistent with old granulomatous disease. No new airspace opacities, pulmonary edema, pleural effusion or pneumothorax. The cardiomediastinal silhouette is normal. Mild thoracic spondylos is. IMPRESSION: 1. No acute cardiopulmonary disease. Reviewed, dictated and finalized at location A. AND OUT CIGAR MAKER HAND
--- NOTE | 2021-10-06 17:25 | ECG_ITS ---
Measurements Intervals [place] Rate: 69 P: 48 LA: 165 QRS: -51 QRSD: 112 T: 34 QT: 385 QTc: 414 Interpretive Statements SINUS RHYTHM LEFT ANTERIOR FASCICULAR B ABNORMAL [facility] Electronically Signed On 10-06-2021 20:17:38 AIRCRAFT SEAT UPHOLSTERER by Manjeet Tracey D.O.
[2021-10-06 17:44] LABS: Basophils Percent Auto 0.7 % (0.2-1.2); Eosinophils Absolute Auto 0.1 K/mm3 (0-0.3); Eosinophils Percent Auto 2.2 % (0-4.4); Hematocrit 43.5 % (42.0-52.0); Hemoglobin 14.3 g/dL (14.0-18.0); Immature Granulocyte Absolute 0.02 K/mm3 (0.00-0.031); Immature Granulocyte Percent A 0.3 % (0-0.5); Lymphocytes Absolute Auto 1.96 K/mm3 (0.9-3.2); Lymphocytes Percent Auto 33.3 % (18.3-44.2); Mean Corpuscular HGB Conc 32.9 g/dl (32-36); Mean Corpuscular Hemoglobin 30.6 pg (26-34); Mean Corpuscular Volume 93.1 fl (80-100); Mean Platelet Volume 10.3 fl (7.4-10.4); Monocytes Absolute Auto 0.7 K/mm3 (0.1-0.6); Monocytes Percent Auto 11.6 % (2.6-8.5); Neutrophils Absolute Auto 3.1 K/mm3 (1.3-6.7); Neutrophils Percent Auto 51.9 % (45.5-73.1); Platelet Count Result 180 k/mm3 (150-375); Red Blood Count 4.67 M/mm3 (4.6-6.20); Red Cell Distribution Width 13.5 % (11.5-14.5); White Blood Count 5.9 K/mm3 (4.5-10.0)
[2021-10-06 17:53] LABS: Prothrombin Time 13.2 Seconds (11.1-14.7)
[2021-10-06 17:54] LABS: Partial Thromboplastin Time 24.7 SECONDS (22.3-36.8)
[2021-10-06 17:56] LABS: Anion Gap 9 mmol/L (8-16); Blood Urea Nitrogen 20 mg/dL (9-20); Calcium 9.2 mg/dL (8.4-10.2); Carbon Dioxide 25 mmol/L (22-30); Chloride 103 mmol/L (98-107); Estimated CRCL calculation 61 ml/min; Estimated Glomerular Filt Rate > 60; Glucose 129 mg/dL (65-110); Potassium 3.4 mmol/L (3.4-5.0); Sodium 137 mmol/L (137-145)
[2021-10-06 18:08] LABS: Troponin I < 0.012 ng/mL (0.000-0.034)
[2021-10-06 20:58] LABS: Troponin I < 0.012 ng/mL (0.000-0.034)
--- NOTE | 2021-10-06 21:54 | ED.GENADULT ---
HPI - General Adult General Chief complaint: Arrhythmia/Palpitations Stated complaint: my heart is skipping beats Time Seen by Provider: 10/06/21 20:51 Source: patient History of Present Illness HPI narrative: Patient is a 66 y/o male complaining of moderate heart palpitation starting around 4:00 PM today. He describes feeling skipped beats. There is no known alleviating or exacerbating factor. However, his symptoms have resolved. He has no chest pain or SOB currently. He reports that he had a heart attack in December, but cath showed no blockage. Related Data Home Medications Medication Instructions Recorded Confirmed Eye Vitamin and Minerals 1 tab-cap PO DAILY 05/18/21 09/28/21 omega-3 fatty acids [Fish Oil] 500 mg PO DAILY 05/18/21 09/28/21 Allergies Allergy/AdvReac Type Severity Reaction Status Date / Time No Known Allergies Allergy Verified 10/06/21 20:44 Review of Systems Constitutional: Constitutional: Denies chills, Denies fever(s), Denies headache(s) and Denies weakness Eyes: Eyes: Denies blurry vision ENT: Denies headache(s) and Denies neck pain Cardiovascular: Cardiovascular: Denies chest pain, Reports palpitations and Denies dyspnea Respiratory: Respiratory: Denies cough and Denies dyspnea Gastrointestinal: Gastrointestinal: Denies abdominal pain, Denies diarrhea, Denies nausea and Denies vomiting Genitourinary: Genitourinary: Denies hematuria and Denies dysuria Musculoskeletal: Musculoskeletal: Denies back pain and Denies neck pain Neurologic: Denies headache(s) and Denies weakness REPLACED BY [facility] Past Medical History Medical History ACS (acute coronary syndrome) CAD (coronary artery disease) Essential (primary) hypertension Hypothyroidism NSTEMI (non-ST elevated myocardial infarction) Pure hypercholesterolemia, unspecified Rotator cuff tear (~04/05/12) Ruptured patellar tendon (~2004) Surgical History Surgical History H/O hemorrhoidectomy (~04/27/13) H/O hernia repair (~1994) Family History Family History Mother Diabetes mellitus Sibling Diabetes mellitus Hypertension Family history of elevated blood lipids Family history of kidney disease Family history of malignant neoplasm of breast in first degree relative Family history of malignant neoplasm of kidney Father Hypertension Family history of throat cancer Social History Social History Alcohol intake: never Substance use: never Substance use type: does not use Gender identity (if verbalized by the patient): Male Spiritual care concerns: No Exam Const: General: no acute distress and well developed Orientation/consciousness: oriented to person, oriented to place, oriented to time and patient oriented x3 HENMT: Head: normocephalic Ears: external ears normal General nose exam: Normal external nose present Eyes: General: appearance normal, both eyes and all related structures Conjunctivae: conjunctivae normal Neck: Neck: normal visual inspection and full ROM Chest: Chest palpation & inspection: normal inspection of the chest and no tenderness Resp: Effort & Inspection: normal respiratory effort Auscultation: clear to auscultation bilaterally Cardio: Rate: regular rate Rhythm: regular rhythm GI: GI Palp: No abdominal tenderness and Yes Soft to palpation Skin: General skin exam: normal color and turgor normal Neuro: General: oriented to person, oriented to place, oriented to time and patient oriented x3 Cognition (Neuro): normal cognition Extrem: General: normal to inspection, full ROM and no pedal edema Psych: Appearance: grossly normal Mental Status: mental status grossly normal Affect: normal affect Course Consultations Consultation #1: Discussed with Dr. Hedrick, who agrees with plan f
[2021-10-06] MEDS: POTASSIUM CHLORIDE 20 MEQ TABLET PO (22:10)
== END 2021-10-06 22:30 | disposition home or self-care (01) ==
PROVIDERS: Emergency Provider Emergency Medicine; PCP Family Medicine
DX: R00.2 Palpitations (principal); I25.2 Old myocardial infarction; I25.10 Atherosclerotic heart disease of native coronary artery without angina pectoris; I10 Essential (primary) hypertension; E03.9 Hypothyroidism, unspecified; E78.00 Pure hypercholesterolemia, unspecified; I44.4 Left anterior fascicular block
CPT/HCPCS: 36415; 71046; 80048; 84484; 85025; 85610; 85730; 93005; 99284; A9270

== ENCOUNTER 2022-08-26 07:35 | Outpatient (CLI) | payer MEDICARE, SELFPAY ==
--- NOTE | ~2022-08-26 | XR_ITS ---
EXAMINATION: XR abdomen/kub 1V DATE: 08/26/2022 07:56 INDICATION: Gross hematuria. TECHNIQUE: A supine view of the abdomen on 2 radiographs was obtained. COMPARISON: CT abdomen and pelvis 08/26/2022 FINDINGS: There is a 3 mm stone in right kidney lower pole. There is a 3 mm stone in left kidney uppe r pole. There are phleboliths in the pelvis. There are surgical clips from left inguinal hernia repai r. There are no dilated loops of bowel. IMPRESSION: 1. Bilateral kidney stones. Reviewed, dictated and finalized at location A. IMPRESSION: 1. Bilateral kidney stones.
--- NOTE | ~2022-08-26 | CT_ITS ---
EXAMINATION: CT abdomen pelvis wo/w con DATE: 08/26/2022 08:19 INDICATION: Gross hematuria. TECHNIQUE: Computed tomography (CT) of the abdomen and pelvis was performed without and with intraven ous contrast using a total of 130 mL Omnipaque-350 intravenous contrast with a double-bolus technique for simultaneous opacification of the renal parenchyma and renal collecting system. Automated exposu re control and iterative reconstruction technique were employed. The dose-length product was 848.46 m Gy-cm. COMPARISON: CT abdomen and pelvis 03/15/2011 FINDINGS: The visualized portions of the lung bases demonstrate mild atelectasis. A calcified right lung nodule is consistent with old adenomatous disease. No pleural effusion. The heart size is normal. No perica rdial effusion. There is a small sliding hiatal hernia. There is diffuse hepatic steatosis. Calcifica tions in the spleen are consistent with old granulomatous disease. The gallbladder, pancreas, and adr enal glands are normal. There is a 3 mm stone in right kidney lower pole. There is a 3 mm stone in le ft kidney upper pole. Right ureter is not well opacified distally, but is normal. Left ureter is not well opacified in its middle and distal thirds, but is normal. The bladder is normal. The prostate is mildly enlarged. There is diverticulosis of the colon without evidence of diverticulitis. There are no dilated loops of bowel. The appendix is normal. There are no pathologically enlarged lymph nodes. There is no free intraperitoneal fluid. There are changes of left inguinal hernia repair. There is mi ld thoracic and lumbar spondylosis. IMPRESSION: 1. Bilateral nonobstructing kidney stones. Reviewed, dictated and finalized at location A.
[2022-08-26 08:03] LABS: Estimated Glomerular Filt Rate 55
== END 2022-08-26 07:36 | disposition home or self-care (01) ==
PROVIDERS: PCP Family Medicine; Visit Provider Urology
DX: R31.0 Gross hematuria (principal); N20.0 Calculus of kidney
CPT/HCPCS: 74018; 74178; Q9967

== ENCOUNTER → 2022-09-27 11:17 | Outpatient (CLI) | payer MEDICARE, SELFPAY ==
--- NOTE | ~2022-09-27 | XR_ITS ---
XR foot RT 2V DATE: 09/27/2022 11:27 INDICATION: Right foot pain TECHNIQUE: AP and lateral views COMPARISON: None FINDINGS: Mild plantar calcaneal enthesopathy without erosive change or periostitis. There is mild hallux valgus and bunion deformity. There is mild osteoarthritis at the first metatarso phalangeal joint. No erosive change. No fracture, dislocation, periosteal reaction or bone destruction. IMPRESSION: Mild plantar calcaneal enthesopathy Mild hallux valgus and bunion deformity Mild osteoarthritis at first metatarsophalangeal joint Reviewed, dictated and finalized at location A. EM SAFETY MANAGER
== END ==
PROVIDERS: PCP Nurse Practitioner; Visit Provider Nurse Practitioner
DX: M20.11 Hallux valgus (acquired), right foot (principal)
CPT/HCPCS: 73620

== ENCOUNTER 2023-01-04 03:22 | Emergency (ER) | payer MEDICARE, SELFPAY ==
--- NOTE | ~2023-01-04 | CT_ITS ---
EXAMINATION: CT abdomen pelvis w con DATE: 01/04/2023 05:04 INDICATION: Left lower quadrant abdominal pain for 3 days TECHNIQUE: Computed tomography (CT) of the abdomen and pelvis was performed with 100 CC Omnipaque 350 intravenous contrast. Automated exposure control and iterative reconstruction technique were employe d. Exam dose: 459.33 mGy-cm total exam DLP. COMPARISON: 08/26/2022 CT abdomen pelvis FINDINGS: Mild bilateral lower lobe atelectasis. Heart size is within normal range. No pericardial or pleural effusion. 6 mm hepatic dome cyst. The liver, gallbladder, bile ducts, spleen, pancreas and pancreatic duct are otherwise unremarkable. The adrenal glands are unremarkable. Approximately 3.5 mm nonobstructing lower pole right renal calculus. Approximately 4 mm upper pole le ft renal calculus. No ureteral calculus or hydroureteronephrosis is noted on either side. Moderate diffuse thickening of the bladder wall. There is moderate prostatomegaly. Normal caliber and mild atherosclerotic calcification of the abdominal aorta. No intraperitoneal or r etroperitoneal or pelvic mass lesion or adenopathy or ascites. Normal appendix. There is thickening of the wall of the mid sigmoid colon with pericolic fat stranding and diverticulo sis. The findings are consistent with uncomplicated diverticulitis. No abscess or free intraperitonea l air is identified. Additional diverticula of the descending colon and splenic flexure. Included skeletal structures are unremarkable. IMPRESSION: Uncomplicated sigmoid diverticulitis Diverticulosis of left colon Normal appendix 6 mm hepatic cyst Small nonobstructing calculus of each kidney Reviewed, dictated and finalized at Location [facility]. Reviewed, dictated and finalized at location A. AIR HOST
[2023-01-04 03:28] VITALS: BP 104/66; PULSE 73; RESP 18; TEMP 36.4; O2SAT 96
--- NOTE | 2023-01-04 03:55 | PC.NURSE ---
pt c/o lower abd pain since sat. denies any n/v or problems with urination/bowels.
[2023-01-04 04:21] LABS: Appearance Urine Clear (Clear); Basophils Percent Auto 0.3 % (0.2-1.2); Bilirubin Urine Negative (Negative); Blood Urine Negative (Negative); Color Urine Yellow (Yellow); Eosinophils Absolute Auto 0.1 K/mm3 (0-0.3); Eosinophils Percent Auto 0.6 % (0-4.4); Glucose Urine UA Negative (Negative); Hematocrit 43.3 % (42.0-52.0); Hemoglobin 14.2 g/dL (14.0-18.0); Immature Granulocyte Absolute 0.05 K/mm3 (0.00-0.031); Immature Granulocyte Percent A 0.4 % (0-0.5); Ketones Urine Negative (Negative); Leukocyte Esterase Ur Negative LEU/UL (Negative); Lymphocytes Absolute Auto 1.75 K/mm3 (0.9-3.2); Lymphocytes Percent Auto 13.3 % (18.3-44.2); Mean Corpuscular HGB Conc 32.8 g/dl (32-36); Mean Corpuscular Hemoglobin 30.2 pg (26-34); Mean Corpuscular Volume 92.1 fl (80-100); Mean Platelet Volume 9.9 fl (7.4-10.4); Monocytes Absolute Auto 1.4 K/mm3 (0.1-0.6); Monocytes Percent Auto 10.2 % (2.6-8.5); Neutrophils Absolute Auto 9.9 K/mm3 (1.3-6.7); Neutrophils Percent Auto 75.2 % (45.5-73.1); Nitrate Urine Negative (Negative); Platelet Count Result 199 k/mm3 (150-375); Protein Urine Negative (Negative); Red Cell Distribution Width 13.4 % (11.5-14.5); Specific Grav Ur 1.025 (1.001-1.035); Urobilinogen Urine 0.2 mg/dL (<2.0); White Blood Count 13.2 K/mm3 (4.5-10.0); pH Urine 5.5 (5.0-9.0)
[2023-01-04 04:26] LABS: Add Urine Microscopic? NO
[2023-01-04] MEDS: SODIUM CHLORIDE 0.9% IV 1,000 ML 999 ML IV CONT (04:27)
[2023-01-04] MEDS: ONDANSETRON INJ 4 MG/2 ML VIAL IV PUSH (04:27)
[2023-01-04 04:33] LABS: Lactic Acid Reflex 0.7 mmol/L (0.7-2.0)
[2023-01-04 04:34] LABS: Alanine Aminotransferase 25 U/L (6-50); Albumin Level 4.2 g/dL (3.5-5.1); Alkaline Phosphatase 77 U/L (38-126); Anion Gap 7 mmol/L (8-16); Aspartate Amino Transferase 20 U/L (17-59); Bilirubin,Total 1.1 mg/dL (0.2-1.3); Blood Urea Nitrogen 14 mg/dL (9-20); Calcium 8.4 mg/dL (8.4-10.2); Carbon Dioxide 26 mmol/L (22-30); Chloride 106 mmol/L (98-107); Estimated CRCL calculation 61 ml/min; Estimated Glomerular Filt Rate > 60; Glucose 121 mg/dL (65-110); Lipase 36 U/L (23-300); Potassium 3.7 mmol/L (3.4-5.0); Sodium 139 mmol/L (137-145)
--- NOTE | 2023-01-04 05:07 | ED.GENADULT ---
HPI - General Adult General Chief complaint: Abdominal Pain <Kavon Ramirez MD - Last Filed: 01/04/23 07:45> Stated complaint: lower abd pain <Kavon Ramirez MD - Last Filed: 01/04/23 07:45> Time Seen by Provider: 01/04/23 03:56 <Kavon Ramirez MD - Last Filed: 01/04/23 07:45> History of Present Illness HPI narrative: 67-year-old gentleman who presents the emergency department with a chief complaint of abdominal pain. Patient reports for the last 3 days has been having discomfort in his lower portions of his abdomen. Patient states is worse in the left lower quadrant the patient denies vomiting denies diarrhea patient denies blood in his stool. The patient reports no prior history of diverticulitis patient states the pain is worse with palpation and improved with rest <Kavon Ramirez MD - Last Filed: 01/04/23 07:45> Related Data Home medications: Home Medications Medication Instructions Recorded Confirmed omega-3 fatty acids 500 mg capsule 500 mg PO DAILY 05/18/21 12/14/22 rivaroxaban 20 mg tablet (Xarelto) 20 mg PO DAILY 06/07/22 12/14/22 <Kavon Ramirez MD - Last Filed: 01/04/23 07:45> Allergies/adverse reactions: Allergies Allergy/AdvReac Type Severity Reaction Status Date / Time No Known Allergies Allergy Verified 12/14/22 09:54 <Kavon Ramirez MD - Last Filed: 01/04/23 07:45> Review of Systems Review of Systems: A 10 system review of systems was completed on the patient and is negative except for what is stated in the HPI. Nursing and ancillary documentation was reviewed. <Kavon Ramirez MD - Last Filed: 01/04/23 07:45> PMF Past Medical History Medical History: Medical History ACS (acute coronary syndrome) CAD (coronary artery disease) Essential (primary) hypertension Hypothyroidism NSTEMI (non-ST elevated myocardial infarction) Pure hypercholesterolemia, unspecified Rotator cuff tear (~04/05/12) Ruptured patellar tendon (~2004) <Kavon Ramirez MD - Last Filed: 01/04/23 07:45> Surgical History Surgical History: Surgical History H/O hemorrhoidectomy (~04/27/13) H/O hernia repair (~1994) <Kavon Ramirez MD - Last Filed: 01/04/23 07:45> Family History Family History: Family History Mother Diabetes mellitus Sibling Diabetes mellitus Hypertension Family history of elevated blood lipids Family history of kidney disease Family history of malignant neoplasm of breast in first degree relative Family history of malignant neoplasm of kidney Father Hypertension Family history of throat cancer <Kavon Ramirez MD - Last Filed: 01/04/23 07:45> Social History Social History: Social History Smoking status: Never smoker Alcohol intake: never Substance use: never Substance use type: does not use Lack of Transportation: No Lack of Food: Never True Current Housing: I Have Housing Concerned About Future Housing: No Difficulty Paying Gas/Electric Bills: No Difficulty Paying for Meds: No Currently Unemployed: No Education: High School Diploma/GED Difficulty w/ Childcare or Family Care: No Living arrangements: with family Gender identity (if verbalized by the patient): Male Spiritual care concerns: No <Kavon Ramirez MD - Last Filed: 01/04/23 07:45> Exam Narrative: GENERAL: Well-appearing, well-nourished, and in no acute distress. HEAD: Normocephalic, atraumatic. EYES: PERRLA and EOMI. ENT: Nares clear, no rhinorrhea or epistaxis. Mucous membranes moist. NECK: Supple. CHEST: Clear to auscultation. No respiratory distress. HEART: Regular rate and rhy
[2023-01-04 07:00] VITALS: BP 105/73; PULSE 67; RESP 16; O2SAT 95
[2023-01-04] MEDS: AMOXICILLIN/CLAVULANATE K 875-125 MG TAB 1 TABLET PO (08:20)
== END 2023-01-04 08:27 | disposition home or self-care (01) ==
PROVIDERS: Emergency Provider Emergency Medicine; PCP Family Medicine
DX: K57.32 Diverticulitis of large intestine without perforation or abscess without bleeding (principal); I24.9 Acute ischemic heart disease, unspecified; I25.10 Atherosclerotic heart disease of native coronary artery without angina pectoris; I10 Essential (primary) hypertension; I25.2 Old myocardial infarction; E78.00 Pure hypercholesterolemia, unspecified; E03.9 Hypothyroidism, unspecified; K57.90 Diverticulosis of intestine, part unspecified, without perforation or abscess without bleeding; K76.89 Other specified diseases of liver; N20.0 Calculus of kidney
CPT/HCPCS: 36415; 74177; 80053; 81003; 83605; 83690; 85025; 96361; 96374; 99284; A9270; J2405; J7030; Q9967

== ENCOUNTER 2023-10-11 10:26 | Outpatient (CLI) | payer MEDICARE, SELFPAY ==
--- NOTE | ~2023-10-11 | XR_ITS ---
XR abdomen/kub 1V 10/11/2023 10:41 Indication: Gross hematuria Procedure: KUB Comparison: 08/26/2022 Findings: Bowel gas pattern is nonobstructive. Moderate colonic fecal loading. There are bilateral re nal stones. No acute osseous abnormality. There are surgical changes in the pelvis. Impression: 1: Bilateral nephrolithiasis. Reviewed, dictated and finalized at location L. XML DEVELOPER Impression: 1: Bilateral nephrolithiasis.
== END 2023-10-11 10:27 | disposition home or self-care (01) ==
PROVIDERS: PCP Family Medicine; Visit Provider Urology
DX: R31.0 Gross hematuria (principal); N20.0 Calculus of kidney
CPT/HCPCS: 74018

== ENCOUNTER 2024-05-29 08:03 | Outpatient (CLI) | payer MEDICARE, SELFPAY ==
--- NOTE | ~2024-05-29 | XR_ITS ---
XR_CERV2-3V_CR Ordering provider: Vianney Brenner DIRECTOR INFORMATION SECURITY-C History: . M54.2 - Cervicalgia . Comparison: None. FINDINGS: VERTEBRAL BODIES: Normal height and alignment. No visible fracture or subluxation. The dens is intact . Mild degenerative changes in the lower cervical area. DISK SPACES: Narrowing of the disc C5-C6 and C6-C7. Multilevel uncovertebral joint osteoarthritic josue nges. Facet joint disease seen at the level of C5-C6 and C6-C7 PARASPINOUS SOFT TISSUES: No prevertebral soft tissue swelling. IMPRESSION: No acute osseous abnormality cervical spine. Multilevel degenerative disc disease. Reviewed, dictated and finalized at location A.
== END 2024-05-29 08:04 ==
PROVIDERS: PCP Family Medicine; Visit Provider Nurse Practitioner
DX: M50.322 Other cervical disc degeneration at C5-C6 level (principal); M50.323 Other cervical disc degeneration at C6-C7 level
CPT/HCPCS: 72040

== ENCOUNTER 2024-10-22 11:36 | Outpatient (CLI) | payer MEDICARE, SELFPAY ==
--- NOTE | ~2024-10-22 | XR_ITS ---
Supine and upright views of the abdomen Clinical history: Renal stone COMPARISON: 10/11/2023 Findings: Bowel gas pattern is nonspecific. No evidence for obstruction or free air. Small bilateral renal stones are unchanged. Osseous structures are intact. Impression: Stable small bilateral renal stones. Reviewed, dictated and finalized at [facility]. CISE INSTRUCT Impression: Stable small bilateral renal stones.
== END 2024-10-22 11:37 | disposition home or self-care (01) ==
PROVIDERS: PCP Family Medicine; Visit Provider Urology
DX: N20.0 Calculus of kidney (principal)
CPT/HCPCS: 74018

== ENCOUNTER 2024-11-19 13:39 | Outpatient (CLI) | payer MEDICARE, SELFPAY ==
--- NOTE | ~2024-11-19 | XR_ITS ---
EXAMINATION: XR fl inj shoulder RT - MR/CT DATE: 11/19/2024 14:26 INDICATION: Unspecified rotator cuff tear or rupture. History of rotator cuff repair. No history of d islocation. TECHNIQUE: A time-out was performed to verify the patient's name, date of , and procedure to b e performed. The procedure including the risks, benefits, and alternatives was discussed with the pat ient. Risks discussed included bleeding and infection. The patient understood the risks and agreed to proceed. The skin overlying the right glenohumeral joint was prepped and draped in usual sterile fas hion. Anesthetic was administered with 1% lidocaine subcutaneously. A 22 G needle was advanced unde r fluoroscopic guidance into the joint. Subsequently, injectate consisting of 12 mL of 1:200 Multiha nce, 1:4 1% lidocaine, and 1:4 Omnipaque 240 was instilled. The needle was removed and the entry sit e was cleaned and dressed. There were no immediate complications. Fluoroscopy exposure time was 0.1 minutes. The total number of images was 4. FINDINGS: Real-time fluoroscopy demonstrates the needle and contrast in the right glenohumeral joint. Contrast flows from the joint to the subacromial/subdeltoid bursa. IMPRESSION: 1. Successful right glenohumeral joint injection of contrast for subsequent MR arthrography. Reviewed, dictated and finalized at location A. P LEADER SEMICONDUCTOR TESTING
--- NOTE | ~2024-11-19 | MR_ITS ---
EXAMINATION: MR shoulder RT w con DATE: 11/19/2024 15:01 INDICATION: Unspecified right rotator cuff tear or rupture. TECHNIQUE: Magnetic resonance imaging (MRI) of the right shoulder was performed without intravenous c ontrast after intra-articular injection of contrast (MRI arthrogram). COMPARISON: Right shoulder radiographs 10/24/2024 FINDINGS: Coracoacromial arch: The acromion undersurface is curved in morphology (type II). There are likely changes of distal clavi teresa resection and acromioplasty. There is a large subacromial/subdeltoid bursal effusion containing c ontrast. Rotator cuff: There is a full-thickness tear of supraspinatus tendon measuring 1.6 cm anterior-posterior by 3.9 cm proximal to distal. There is severe infraspinatus tendinopathy. Teres minor tendon is normal. There i s an interstitial tear of subscapularis tendon. There is an articular sided partial thickness tear of subscapularis tendon. There is mild fatty atrophy of supraspinous, infraspinatus, and subscapularis muscle bellies. Biceps tendon and glenoid labrum: There is a complete tear of biceps tendon. There is a tear of the superior labrum from 10:00 to 2:00 (SLAP tear). Fluid: The glenohumeral joint is well distended by contrast. Bones/cartilage: There is partial-thickness cartilage loss of glenoid, deep posterior superiorly. There is shallow par tial-thickness cartilage loss of humeral head. Osteophytes are noted. IMPRESSION: 1. Full-thickness rotator cuff tear. 2. Moderate glenohumeral joint chondrosis. 3. Complete tear of proximal biceps tendon. Reviewed, dictated and finalized at location [] GENCY MEDICAL SERVICE MANAGER
== END 2024-11-19 13:40 | disposition home or self-care (01) ==
PROVIDERS: PCP Family Medicine; Visit Provider Physician Assistant Surgical
DX: M12.811 Other specific arthropathies, not elsewhere classified, right shoulder (principal); M75.121 Complete rotator cuff tear or rupture of right shoulder, not specified as traumatic; M94.211 Chondromalacia, right shoulder; S46.211A Strain of muscle, fascia and tendon of other parts of biceps, right arm, initial encounter; X58.XXXA Exposure to other specified factors, initial encounter
CPT/HCPCS: 23350; 73222; 77002; A9577; Q9966

== ENCOUNTER 2025-09-26 18:30 | Emergency (ER) | payer MEDICARE, SELFPAY ==
--- OUTSIDE RECORDS SUMMARY | 2003-08-26 02:00 | XMS_ITS | Continuity of Care Document ---
Author Organization [facility] Address [id number] [place] [address] [address] [place] [address] Phone Care Team Providers Care Cloth Shrinking Machine Operator Name Role Phone Tony MCKEONDerick Unavailable Unavailable Advance Directives Directive Yes / No Effective Date File Name No Information Encounters Encounter Description Practice Location Reason(s) For Visit Diagnoses Date Provider Providers Copied on Encounter [facility], [address], [place], [place], [id number], [place] tel:[phone] [facility] No Information Tony Pearl. [address] [place], [address], [place]. tel: [phone] Family History Family Member Type Diagnosis Age At Onset No Information Payers Payer name Insurance type Covered alliance party ID Authoriza tion(s) [place] [id number] Social History Type Description Quantity Date Captured Comments Sex Male Smoking Status No Information Chief Complaint And Reason For Visit No Information Reason For Referral Reason For Referral No Information History Of Present Illness Encounter Date Complaint History Of Prese nt Illness No Information Functional Status Date Functional Assessmen t No Information Instructions Date Instruction Additional Infor mation No Information Assessments Type Assessment Date No Information Patient Care Teams Name Effective Dates (start - stop) Status Members No Information
--- NOTE | ~2025-09-26 | CT_ITS ---
CT abdomen pelvis w con INDICATION:LLQ pain, suspect diverticulitis . COMPARISON: None. TECHNIQUE: Axial images of the abdomen and pelvis were obtained following infusion of 100 mL Isovue 300. Dose optimization technique was utilized. FINDINGS: The lung bases are clear. Fatty infiltration of the liver is noted. No intrahepatic mass or ductal dilatation is evident. The gallbladder is unremarkable. The pancreas and spleen are normal in appearance. The adrenal glands are symmetric in size. The kidneys demonstrate symmetric uptake and excretion of contrast. No cystic mass is evident. There is no solid mass. There is no hydronephrosis. There is thickening of the proximal sigmoid colon with adjacent induration suggestive of acute diverticulitis. There are no free air or free fluid. The bladder and rectum are normal. No free intraperitoneal fluid or air is evident. There is no significant retroperitoneal lymphadenopathy. The aorta, visceral vessels and renal arteries demonstrate normal caliber and patency. The lower thoracic and lumbar vertebrae are in normal alignment. IMPRESSION: Acute Sigmoid diverticulitis with no free air or free fluid. Hepatic steatosis. All CT scans at this facility are performed using low dose modulation techniques as appropriate to perform exam including the following: automated exposure control; use of iterative reconstruction technique; adjustment of the mA and/or kV according to patient size (this includes techniques or standardized protocols for targeted exams where dose is matched to indication/reason for exam). Reviewed, dictated and finalized at location S. ARCH TECHNOLOGIST IMPRESSION: Acute Sigmoid diverticulitis with no free air or free fluid. Hepatic steatosis. All CT scans at this facility are performed using low dose modulation techniqu es as appropriate to perform exam including the following: automated exposure c ontrol; use of iterative reconstruction technique; adjustment of the mA and/or kV according to patient size (this includes techniques or standardized protocol s for targeted exams where dose is matched to indication/reason for exam).
[2025-09-26 18:45] VITALS: BP 148/87; PULSE 110; RESP 16; TEMP 37.3; O2SAT 95
--- NOTE | 2025-09-26 18:51 | ED.ABDPAIN ---
HPI - Abdominal Pain General Chief Complaint: Abdominal Pain <Monica Wells PA-C - Last Filed: 09/28/25 14:36> Stated Complaint: abd pain <Monica Wells PA-C - Last Filed: 09/28/25 14:36> Time Seen by Provider: 09/26/25 18:51 <Monica Wells PA-C - Last Filed: 09/28/25 14:36> Focused HPI: This is a 70 year old male that presents to the ER for left lower quadrant abdominal pain. Denies fever, vomiting, diarrhea, dysuria, hematuria. Does report history of kidney stones. GENERAL: Well-appearing, well-nourished, and in no acute distress. HEAD: Normocephalic, atraumatic. CHEST: Clear to auscultation. ?No respiratory distress. HEART: Regular rate and rhythm.? NEURO: ?Alert and oriented x3. Patient screened in triage and initial orders placed.? ?Additional care and disposition to be based upon?diagnostic testing and treatment. <Monica Wells PA-C - Last Filed: 09/28/25 14:36> Related Data Home Medications: Home Medications ?Medication ?Instructions ?Recorded ?Confirmed ?Last Taken ?Type omega-3 fatty acids 500 mg capsule 500 mg PO DAILY 05/18/21 09/03/25 07/02/21 History <JADEN Israel Last Filed: 09/28/25 14:36> Allergies/Adverse Reactions: Allergies Allergy/AdvReac Type Severity Reaction Status Date / Time No Known Allergies Allergy Verified 09/26/25 18:48 <Monica Wells PA-C - Last Filed: 09/28/25 14:36> Review of Systems Review of Systems: All systems reviewed & are unremarkable except as noted in HPI and below <JADEN Israel Last Filed: 09/28/25 14:36> PMFSH Past Medical History Medical History: Medical History (Updated 09/27/25 @ 00:00 by Background Daemon) Diverticulitis CAD (coronary artery disease) NSTEMI (non-ST elevated myocardial infarction) ACS (acute coronary syndrome) Essential (primary) hypertension Hypothyroidism Pure hypercholesterolemia, unspecified Ruptured patellar tendon (~2004) Rotator cuff tear (~04/05/12) <Monica Wells PA-C - Last Filed: 09/28/25 14:36> Surgical History Surgical History: Surgical History H/O hernia repair (~1994) H/O hemorrhoidectomy (~04/27/13) <Monica Wells PA-C - Last Filed: 09/28/25 14:36> Family History Family History: Family History Mother Diabetes mellitus Sibling Diabetes mellitus Hypertension Family history of elevated blood lipids Family history of kidney disease Family history of malignant neoplasm of breast in first degree relative Family history of malignant neoplasm of kidney Father Hypertension Family history of throat cancer <Monica Wells PA-C - Last Filed: 09/28/25 14:36> Social History Social History: Social History Social History: Caffeine- coffee Alcohol intake: never Substance use: never Substance use type: does not use Lack of Food: Never True Current Housing: Decline to Answer Concerned About Future Housing: Decline to Answer Difficulty Paying Gas/Electric Bills: Decline to Answer Difficulty Paying for Meds: Decline to Answer Currently Unemployed: Decline to Answer Education: Decline to Answer Difficulty w/ Childcare or Family Care: Decline to Answer Living arrangements: with family Gender identity (if verbalized by the patient): Male Spiritual care concerns: No <Monica Wells PA-C - Last Filed: 09/28/25 14:36> Exam Narrative: APPEARANCE: No apparent distress. Head: atraumatic. EYES: EOMI, NOSE: Atraumatic NECK: Trachea midline RESPIRATORY: No increased rate of breathing CARDIOVASCULAR: RRR, ABDOMINAL: Non-distended tenderness palpation left lower quadrant without guarding rebound MUSCULOSKELETAl: No obvious deformities NEURO: Alert. Moving 4/4 extremities SKIN:: Warm, dry. Normal color PSYCHIATRIC: Normal affect <Rick Clay MD - Last Filed: 09/26/25 23:25> Course Vital Signs Vital signs: Vital Signs Temperature 99.2 F 09/26/25 18:45 Pulse Rate 110 H 09/26/25 18:45 Respiratory Rate 16 09/26/25 18:45 Blood Pressure 148/87 H 09/26/25 18:45 Pulse Oximetry 95 09/26/25 18:45 Oxygen Delivery Room Air 09/26/25 18:45 Temperature 99.2 F 09/26/25 18:45 Pulse Rate 78 09/26/25 23:23 Respiratory Rate 16 09/26/25 23:23 Blood Pressure 106/62 09/26/25 23:23 Pulse Oximetry 98 09/26/25 23:23 Oxygen Delivery Room Air 09/26/25 18:45 <Monica Wells PA-C - Last Filed: 09/28/25 14:36> Vital Signs Temperature 99.2 F 09/26/25 18:45 Pulse Rate 110 H 09/26/25 18:45 Respiratory Rate 16 09/26/25 18:45 Blood Pressure 148/87 H 09/26/25 18:45 Pulse Oximetry 95 09/26/25 18:45 Oxygen Delivery Room Air 09/26/25 18:45 Temperature 99.2 F 09/26/25 18:45 Pulse Rate 78 09/26/25 23:23 Respiratory Rate 16 09/26/25 23:23 Blood Pressure 106/62 09/26/25 23:23 Pulse Oximetry 98 09/26/25 23:23 Oxygen Delivery Room Air 09/26/25 18:45 <Rick Clay MD - Last Filed: 09/26/25 23:25> MDM - Abdominal Pain MDM Narrative Medical decision making narrative: -Course: 70-year-old male presenting with left lower quadrant abdominal pain. LLQ pain on exam. CT showed acute uncomplicated diverticulitis. White count 12.7. Otherwise patient is well-appearing. He is tolerating p.o.. Discussed admission versus discharge patient is comfortable being discharged with supportive medications and antibiotics. Patient given GI follow-up and return precautions. -DDX includes but is not limited to: Diverticulitis, colitis, gastroenteritis appendicitis <Rick Clay MD - Last Filed: 09/26/25 23:25> Lab Data Result diagrams: 09/26/25 21:17 09/26/25 21:17 <Monica Wells PA-C - Last Filed: 09/28/25 14:36> Labs: Lab Results 09/26/25 09/26/25 Range/Units 19:09 21:17 WBC 12.7 H (4.5-10.0) K/mm3 RBC 4.80 (4.6-6.20) M/mm3 Hgb 14.3 (14.0-18.0) g/dL Hct 44.2 (42.0-52.0) % MCV 92.1 (80-100) fl MCH 29.8 (26-34) pg MCHC 32.4 (32-36) g/dl RDW 13.3 (11.5-14.5) % Plt Count 205 (150-375) k/mm3 MPV 10.1 (7.4-10.4) fl Immature Gran % (Auto) 0.4 (0-0.5) % Neut % (Auto) 71.8 (45.5-73.1) % Lymph % (Auto) 15.8 L (18.3-44.2) % [place] % (Auto) 11.4 H (2.6-8.5) % Eos % (Auto) 0.2 (0-4.4) % Baso % (Auto) 0.4 (0.2-1.2) % Lymph # (Auto) 2.01 (0.9-3.2) K/mm3 [place] # (Auto) 1.5 H (0.1-0.6) K/mm3 Eos # (Auto) 0.0 (0-0.3) K/mm3 Baso # (Auto) 0.1 (0.0-0.1) K/mm3 Abs Immat Gran (auto) 0.05 H (0.00-0.031) K/mm3 Absolute Neuts (auto) 9.2 H (1.3-6.7) K/mm3 Absolute Nucleated RBC 0.000 (0.0-0.012) K/mm3 Nucleated RBC % 0.0 (0.0-0.2) % Sodium 137 (137-145) mmol/L Potassium 4.5 (3.4-5.0) mmol/L Chloride 102 (98-107) mmol/L Carbon Dioxide 28 (22-30) mmol/L Anion Gap 7 (4-12) mmol/L BUN 15 (9-20) mg/dL Creatinine 1.38 H (0.7-1.3) mg/dL Estim Creat Clear Calc 47 ml/min Estimated GFR 51 L (59 - ) Glucose 113 H (65-110) mg/dL Calcium 9.0 (8.4-10.2) mg/dL Total Bilirubin 1.5 H (0.2-1.3) mg/dL AST 27 (17-59) U/L ALT 34 (6-50) U/L Alkaline Phosphatase 70 (38-126) U/L Total Protein 7.3 (6.3-8.2) g/dL Albumin 4.3 (3.5-5.1) g/dL Lipase 38 (23-300) U/L Urine Color Yellow (Yellow) Urine Appearance Clear (Clear) Urine pH 7.0 (5.0-9.0) Ur Specific [place] 1.020 (1.001-1.035) Urine Protein Negative (Negative) mg/dL Urine Glucose (UA) Negative (Negative) mg/dL Urine Ketones Negative (Negative) mg/dL Ur Blood (Man) Negative (Negative) Urine Nitrate Negative (Negative) Urine Bilirubin Negative (Negative) Urine Urobilinogen 1.0 (<2.0) mg/dL Leukocyte Esterase Rfl Negative (Negative) PENELOPE/UL <Monica Wells PA-C - Last Filed: 09/28/25 14:36> Lab Results 09/26/25 09/26/25 Range/Units 19:09 21:17 WBC 12.7 H (4.5-10.0) K/mm3 RBC 4.80 (4.6-6.20) M/mm3 Hgb 14.3 (14.0-18.0) g/dL Hct 44.2 (42.0-52.0) % MCV 92.1 (80-100) fl MCH 29.8 (26-34) pg MCHC 32.4 (32-36) g/dl RDW 13.3 (11.5-14.5) % Plt Count 205 (150-375) k/mm3 MPV 10.1 (7.4-10.4) fl Immature Gran % (Auto) 0.4 (0-0.5) % Neut % (Auto) 71.8 (45.5-73.1) % Lymph % (Auto) 15.8 L (18.3-44.2) % [place] % (Auto) 11.4 H (2.6-8.5) % Eos % (Auto) 0.2 (0-4.4) % Baso % (Auto) 0.4 (0.2-1.2) % Lymph # (Auto) 2.01 (0.9-3.2) K/mm3 [place] # (Auto) 1.5 H (0.1-0.6) K/mm3 Eos # (Auto) 0.0 (0-0.3) K/mm3 Baso # (Auto) 0.1 (0.0-0.1) K/mm3 Abs Immat Gran (auto) 0.05 H (0.00-0.031) K/mm3 Absolute Neuts (auto) 9.2 H (1.3-6.7) K/mm3 Absolute Nucleated RBC 0.000 (0.0-0.012) K/mm3 Nucleated RBC % 0.0 (0.0-0.2) % Sodium 137 (137-145) mmol/L Potassium 4.5 (3.4-5.0) mmol/L Chloride 102 (98-107) mmol/L Carbon Dioxide 28 (22-30) mmol/L Anion Gap 7 (4-12) mmol/L BUN 15 (9-20) mg/dL Creatinine 1.38 H (0.7-1.3) mg/dL Estim Creat Clear Calc 47 ml/min Estimated GFR 51 L (59 - ) Glucose 113 H (65-110) mg/dL Calcium 9.0 (8.4-10.2) mg/dL Total Bilirubin 1.5 H (0.2-1.3) mg/dL AST 27 (17-59) U/L ALT 34 (6-50) U/L Alkaline Phosphatase 70 (38-126) U/L Total Protein 7.3 (6.3-8.2) g/dL Albumin 4.3 (3.5-5.1) g/dL Lipase 38 (23-300) U/L Urine Color Yellow (Yellow) Urine Appearance Clear (Clear) Urine pH 7.0 (5.0-9.0) Ur Specific [place] 1.020 (1.001-1.035) Urine Protein Negative (Negative) mg/dL Urine Glucose (UA) Negative (Negative) mg/dL Urine Ketones Negative (Negative) mg/dL Ur Blood (Man) Negative (Negative) Urine Nitrate Negative (Negative) Urine Bilirubin Negative (Negative) Urine Urobilinogen 1.0 (<2.0) mg/dL Leukocyte Esterase Rfl Negative (Negative) PENELOPE/UL <Rick Clay MD - Last Filed: 09/26/25 23:25> Imaging Data Radiologist's impression: ITS Impressions Abdomen/Pelvis CT 09/26/25 22:55 IMPRESSION: Acute Sigmoid diverticulitis with no free air or free fluid. Hepatic steatosis. All CT scans at this facility are performed using low dose modulation techniques as appropriate to perform exam including the following: automated exposure control; use of iterative reconstruction technique; adjustment of the mA and/or kV according to patient size (this includes techniques or standardized protocols for targeted exams where dose is matched to indication/reason for exam). <Monica Wells PA-C - Last Filed: 09/28/25 14:36> ITS Impressions Abdomen/Pelvis CT 09/26/25 22:55 IMPRESSION: Acute Sigmoid diverticulitis with no free air or free fluid. Hepatic steatosis. All CT scans at this facility are performed using low dose modulation techniques as appropriate to perform exam including the following: automated exposure control; use of iterative reconstruction technique; adjustment of the mA and/or kV according to patient size (this includes techniques or standardized protocols for targeted exams where dose is matched to indication/reason for exam). <Rick Clay MD - Last Filed: 09/26/25 23:25> Discharge Plan Discharge Clinical Impression: Diverticulitis <Monica Wells PA-C - Last Filed: 09/28/25 14:36> Patient Disposition: Home <Monica Wells PA-C - Last Filed: 09/28/25 14:36> Condition: Stable <Monica Wells PA-C - Last Filed: 09/28/25 14:36> Instructions: Antibiotic Form, Diverticulitis (DC) <Monica Wells PA-C - Last Filed: 09/28/25 14:36> Additional Instructions: You were seen emergency department for diverticulitis. Please eat a liquid diet next several days. Use Zofran for nausea. Complete the antibiotics as instructed. Use Tylenol for pain and oxycodone for breakthrough pain. If you develop severe abdominal pain, fevers or any new/worsening symptoms please return to ED for re-evaluation. <Monica Wells PA-C - Last Filed: 09/28/25 14:36> Patient Language: Amharic <Monica Wells PA-C - Last Filed: 09/28/25 14:36> Prescriptions: New acetaminophen 500 mg tablet 1,000 mg PO TID PRN (Reason: satnam) 7 Days Qty: 42 0RF oxycodone 5 mg tablet 5 mg PO Q4H PRN (Reason: pain) Qty: 7 0RF ondansetron 4 mg tablet,disintegrating 4 mg PO Q8H PRN (Reason: nausea and vomiting) Qty: 30 0RF amoxicillin-pot clavulanate 875-125 mg tablet 1 tablet PO TID 5 Days Qty: 15 0RF No Action Xarelto 20 mg tablet 20 mg PO DAILY Qty: 90 1RF Fish Oil 500 mg Capsule 500 mg PO DAILY lisinopril 10 mg tablet 10 mg PO DAILY Qty: 90 1RF simvastatin 5 mg tablet 5 mg PO DAILY Qty: 90 1RF levothyroxine 50 mcg tablet See Rx Instructions .ROUTE .COMPLEX Qty: 90 1RF Dose Instruction: Take 1 tablet by mouth once daily Rx Instructions: Take 1 tablet by mouth once daily <Monica Wells PA-C - Last Filed: 09/28/25 14:36> Follow-up/Referrals: Vianney Brenner APRN [Primary Care Provider, Internal Medicine] Deshaun Saab MD [Physician, Gastroenterology] - 1 Week Referral Note: Diverticulitis <Monica Wells PA-C - Last Filed: 09/28/25 14:36>
[2025-09-26 19:15] LABS: Add Urine Microscopic? NO; Appearance Urine Clear (Clear); Glucose Urine UA Negative (Negative); Leukocyte Esterase Ur Negative LEU/UL (Negative); Nitrate Urine Negative (Negative); Specific Grav Ur 1.020 (1.001-1.035)
--- OUTSIDE RECORDS SUMMARY | 2025-09-26 21:15 | XMS_ITS | Clinical Summary ---
Author [place] [facility] [place] [address] Address [address] [place] [address] Care Team Providers Care Regional Vice President Surgical Sales Name Role Phone Norah uHghes DO Primary Care Provider [phone] Allergies No known active allergies Medications levothyroxine sodium (TIROSINT) 50 mcg capsule Take 50 mcg by mouth tong carrier before breakfast Active vit C,V-Hg-gqenr-jhon tein-zeaxan [id number] vl-hzdq-te-mg capsule Take by mouth Active omega-3 fatty acids/dha/epa (MEGARED [id number] ORAL) Take by mouth Active aspirin 81 mg enteric coated tablet Take 1 tablet (81 mg total) by mouth daily 90 tablet 3 2 Active Additional Information Patient not taking.Reported on 02/24/2022 simvastatin (ZOCOR) 5 mg tablet Take 1 tablet (5 mg total) by mouth nightly 30 tablet 11 2 Active rivaroxaban (Xarelto) 20 mg tablet Take 1 tablet (20 mg total) by mouth nightly 30 tablet 3 Active lisinopriL (PRINIVIL,ZESTR IL) 10 mg tablet Take 1 tablet by mouth once daily 30 tablet 3 Active Active Problems No known active problems Surgical History Surgery Date Site/Laterality Comments HERNIA REPAIR KNEE SURGERY SHOULDER SURGERY Medical History Medical History Date Comments Hypertension Hyperlipidemia Thyroid disease Acid indigestion Kidney stones Family History Medical History Relation Name Comments Liver cancer Brother 1 Cirrhosis Brother 2 Esophageal cancer Father Cirrhosis Mother Esophageal cancer Sister Relation Name Status Comments Brother 1 (Age 39) Brother 2 (Age 60) Father (Age 63) Mother (Age 83) Sister (Age 43) Social History Tobacco Use Types Packs/Day Years Used Date Smoking Tobacco: Never Smokeless Tobacco: Never Alcohol Use Standard Drinks/Week Comments Not Currently 0 (1 standard drink = 0.6 oz pur e alcohol) Personal Safety Answer Date Recorded Getting School Help Needed Not on file 12/13 Sex and Gender Information Value Date Recorded Sex Assigned at Not on file 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 Gender Identity Not on file Sexual Orientation Not on file Last Filed Vital Signs Vital Sign Reading Time Taken Comments Blood Pressure 122/86 02/24/2022 9:47 AM CDT Pulse 81 02/24/2022 9:47 AM CDT Temperature - - Respiratory Rate - - Oxygen Saturation 98% 02/24/2022 9:47 AM CDT Inhaled Oxygen Concentration - - Weight 84.4 kg (186 lb) 02/24/2022 9:47 AM CDT Height 177.8 cm (5' 10) 02/24/2022 9:47 AM CDT Body Mass Index 26.69 02/24/2022 9:47 AM CDT Plan of Treatment Not on file Insurance [facility] MEDICARE Care Teams Regional Vice President Surgical Sales Relationship Specialty Start Date End Date Norah Hughes DO PCP - General Family Medicine 03/26/20
[2025-09-26 21:22] LABS: Hematocrit 44.2 % (42.0-52.0); Hemoglobin 14.3 g/dL (14.0-18.0); Immature Granulocyte Percent A 0.4 % (0-0.5); Lymphocytes Absolute Auto 2.01 K/mm3 (0.9-3.2); Mean Corpuscular HGB Conc 32.4 g/dl (32-36); Mean Corpuscular Hemoglobin 29.8 pg (26-34); Mean Corpuscular Volume 92.1 fl (80-100); Nucleated Red Blood Cells Absolute Auto 0.000 K/mm3 (0.0-0.012); Nucleated Red Blood Cells Perc 0.0 % (0.0-0.2); Platelet Count Result 205 k/mm3 (150-375); Red Blood Count 4.80 M/mm3 (4.6-6.20); White Blood Count 12.7 K/mm3 (4.5-10.0)
[2025-09-26 21:33] LABS: Alanine Aminotransferase 34 U/L (6-50); Albumin Level 4.3 g/dL (3.5-5.1); Alkaline Phosphatase 70 U/L (38-126); Anion Gap 7 mmol/L (4-12); Aspartate Amino Transferase 27 U/L (17-59); Bilirubin,Total 1.5 mg/dL (0.2-1.3); Blood Urea Nitrogen 15 mg/dL (9-20); Calcium 9.0 mg/dL (8.4-10.2); Carbon Dioxide 28 mmol/L (22-30); Chloride 102 mmol/L (98-107); Estimated CRCL calculation 47 ml/min; Estimated Glomerular Filt Rate 51; Glucose 113 mg/dL (65-110); Lipase 38 U/L (23-300); Potassium 4.5 mmol/L (3.4-5.0); Sodium 137 mmol/L (137-145); Total Protein 7.3 g/dL (6.3-8.2)
[2025-09-26 23:23] VITALS: BP 106/62; PULSE 78; RESP 16; O2SAT 98
== END 2025-09-26 23:33 | disposition home or self-care (01) ==
PROVIDERS: Physician Assistant; Emergency Provider Emergency Medicine; PCP Nurse Practitioner
DX: K57.32 Diverticulitis of large intestine without perforation or abscess without bleeding (principal); I25.10 Atherosclerotic heart disease of native coronary artery without angina pectoris; I25.2 Old myocardial infarction; I10 Essential (primary) hypertension; I24.9 Acute ischemic heart disease, unspecified; E03.9 Hypothyroidism, unspecified; E78.00 Pure hypercholesterolemia, unspecified; Z87.442 Personal history of urinary calculi; K76.0 Fatty (change of) liver, not elsewhere classified; Z79.01 Long term (current) use of anticoagulants; Z79.899 Other long term (current) drug therapy
CPT/HCPCS: 36415; 74177; 80053; 81003; 83690; 85025; 99284; Q9967

== ENCOUNTER 2025-10-31 08:22 | Outpatient (CLI) | payer MEDICARE, SELFPAY ==
--- NOTE | ~2025-10-31 | XR_ITS ---
EXAMINATION: XR abdomen/kub 1V, 10/31/2025 8:32 OBSTETRICAL NURSE HISTORY: Calcium kidney stone COMPARISON: No comparisons available. Technique: 3 view. Findings: Bowel gas pattern unremarkable. No obstruction. Right kidney lower pole 3 mm renal calculus, left kidney superior pole 3 mm renal calculus No acute osseous abnormality. Impression: 1. No acute abnormality. Reviewed, dictated and finalized at location P. ETRICAL NURSE Impression: 1. No acute abnormality.
== END 2025-10-31 08:23 | disposition home or self-care (01) ==
PROVIDERS: PCP Nurse Practitioner; Visit Provider Urology
DX: N20.0 Calculus of kidney (principal)
CPT/HCPCS: 74018